=== PATIENT | male | born 1950 | race Caucasian/White ===

== ENCOUNTER 2017-07-21 10:20 | Observation (INO) | payer OTHER ==
[~2017-07-21] VITALS: Ht 182.9 cm; Wt 106.1 kg
[~2017-07-21 10:20] MED LIST: UNKNOWN BP MED
[2017-07-21 10:51] LABS: BASO % 0.6 %; BASO ABS # 0.03 K/uL (0-0.2); COMPLETE YES; HEMATOCRIT 47.9 % (42-52); IG% 0.2 %; LYMPH % 28.3 %; LYMPH ABS # 1.43 K/uL (1.2-3.4); MEAN CORPUSCULAR HEMOGLOBIN 32.8 pg (25-34); MEAN CORPUSCULAR HGB CONC 35.3 g/dl (32-36); MEAN PLATELET VOLUME 10.6 fL (7.4-10.4); MONO % 9.1 %; NEUT % 58.8 %; PLATELET COUNT 212 K/uL (130-400); RED BLOOD COUNT 5.15 M/uL (4.7-6.1); WHITE BLOOD COUNT 5.05 K/uL (4.8-10.8)
--- NOTE | 2017-07-21 10:59 | DIAGNOSTIC IMAGING REPORT ---
CHEST ONE VIEW PORTABLE HISTORY: Atypical CHEST PAIN COMPARISON: None. FINDINGS: The lungs are clear. Cardiac silhouette is normal in size. No pleural effusions. No pneumothorax. IMPRESSION: No acute process. Electronically signed by: Wilian Lam M.D. 07/21/2017 10:57 AM Dictated Date/Time: 07/21/2017 10:56 AM
[2017-07-21 11:01] LABS: PARTIAL THROMBOPLASTIN RATIO 1.1; PROTHROMBIN TIME (PATIENT) 10.6 SECONDS (9.0-12.0)
--- NOTE | 2017-07-21 11:01 | DIAGNOSTIC IMAGING REPORT ---
CT HEAD WITHOUT CONTRAST (CT) CLINICAL HISTORY: vertigo COMPARISON STUDY: No previous studies for comparison. TECHNIQUE: Axial CT of the brain is performed from the vertex to the skull base. IV contrast was not administered for this examination. A dose lowering technique was utilized adhering to the principles of ALARA. CT DOSE: 614.27 mGy.cm FINDINGS: No intra or extra-axial mass lesions are visualized. There is no CT evidence of acute cortical infarction. There is no evidence of midline shift. There is no acute hemorrhage. No calvarial fractures are visualized. There are minimal white matter hypodensities likely on a small vessel basis. There is no evidence of pathologic ventricular dilatation. There is mild maxilla sinus mucosal thickening. There is no evidence of acute sinusitis. IMPRESSION: No acute intracranial findings Electronically signed by: Vinayak Greenfield M.D. 07/21/2017 11:00 AM Dictated Date/Time: 07/21/2017 10:59 AM
[2017-07-21 11:10] LABS: ALT/SGPT 46 U/L (12-78); AST/SGOT 30 U/L (15-37); BLOOD UREA NITROGEN 9 mg/dl (7-18); BUN/CREATININE RATIO 7.3 (10-20); CALCIUM 9.3 mg/dl (8.5-10.1); CARBON DIOXIDE 24 mmol/L (21-32); CHLORIDE 107 mmol/L (98-107); CREATININE 1.18 mg/dl (0.60-1.40); GLUCOSE 94 mg/dl (70-99); SODIUM 141 mmol/L (136-145)
[2017-07-21 11:14] LABS: ALKALINE PHOSPHATASE 64 U/L (45-117)
[2017-07-21] MEDS ORDERED: AMLO-110 PO (11:28)
--- NOTE | 2017-07-21 12:02 | EMERGENCY ROOM VISIT NOTE ---
History Report prepared by Danilo: Corrine Daniel Under the Supervision of: Emily FieldsO. First contact with patient: 10:22 Chief Complaint: CARDIAC ASSESSMENT Stated Complaint: CHEST TIGHTNESS History of Present Illness The patient is a 67 year old male who presents to the Emergency Room for a cardiac assessment. The patient had a cold 1-2 weeks ago and thought that his symptoms had gone away. For the past week he has been having some tightness in his chest intermittently. This morning while he was in the shower he had another episode of chest tightness. He states that "it felt like a clenched fist in my chest." He became very dizzy and almost fell out of the shower. He states that it felt like the room was spinning. His chest pain felt like it was going straight through to his back. He describes it as "an achy pain." The patient denies shortness of breath, nausea, vomiting, abdominal pain, and leg pain or swelling. He denies any significant cardiac history. He has had a stress test in the past. The patient was brought to the ED by ambulance. He was given aspirin and nitro en route. This has helped his chest pain, but he states that he is still feeling dizzy. The patient rates his current pain as a 2/10 in severity. Source of History: patient Onset: 1 week ago Position: chest Symptom Intensity: 2/10 Quality: other (tightness) Timing: intermittent Modifying Factors (Relieving): other (aspirin and nitro) Associated Symptoms: + back pain, No SOB, No nausea, No vomiting, No abdominal pain Note: Pt reports dizziness. Review of Systems See HPI for pertinent positives & negatives. A total of 10 systems reviewed and were otherwise negative. Past Medical & Surgical Medical Problems: (1) Chest pain (2) HTN (hypertension) Family History Heart disease Social History Smoking Status: Never Smoker Alcohol Use: occasionally Marital Status: Housing Status: lives with significant other Current/Historical Medications Scheduled Amlodipine (Norvasc), 5 MG PO DAILY Allergies Coded Allergies: Shellfish Allergy (Unverified Allergy, Mild, HIVES, 07/21/17) Benazepril (Unverified Allergy, Unknown, ., 07/21/17) Physical Exam Vital Signs Date Time Temp Pulse Resp B/P (MAP) Pulse Ox O2 Delivery O2 Flow Rate FiO2 07/21/17 12:08 58 16 151/96 97 Room Air 07/21/17 10:52 71 07/21/17 10:27 37.0 69 18 181/116 96 Room Air 07/21/17 10:27 97 Room Air Physical Exam GENERAL: Patient is awake, alert, and in no acute distress. Patient is resting comfortably and showing no signs of anxiety EYES: The conjunctivae are clear. The pupils are round and reactive. EARS, NOSE, MOUTH AND THROAT: The nose is without any evidence of any deformity. Mucous membranes are moist tongue is midline NECK: The neck is nontender and supple. RESPIRATORY: Normal respiratory effort is noted there is no evidence of wheezing rhonchi or rales CARDIOVASCULAR: Regular rate and rhythm noted there no murmurs rubs or gallops normal S1 normal S2 GASTROINTESTINAL: The abdomen is soft. Bowel sounds are present in all quadrants. Abdomen is nontender MUSCULOSKELETAL/EXTREMITIES: There is no evidence of gross deformity full range of motion is noted in the hips and shoulders SKIN: There is no obvious evidence of any rash. There are no petechiae, pallor or cyanosis noted. NEUROLOGIC: Patient is awake alert and oriented x3 Medical Decision & Procedures ER Provider Diagnostic Interpretation: Radiology results as stated below per my review and radiologist interpretation: CT HEAD WITHOUT CONTRAST (CT) CLINICAL HISTORY: vertigo COMPARISON STUDY: No previous studies for comparison. TECHNIQUE: Axial CT of the brain is performed from the vertex to the skull base. IV contrast was not administered for this examination. A dose lowering technique was utilized adhering to the principles of ALARA. CT DOSE: 614.27 mGy.cm FINDINGS: No intra or extra-axial mass lesions are visualized. There is no CT evidence of acute cortical infarction. There is no evidence of midline shift. There is no acute hemorrhage. No calvarial fractures are visualized. There are minimal white matter hypodensities likely on a small vessel basis. There is no evidence of pathologic ventricular dilatation. There is mild maxilla sinus mucosal thickening. There is no evidence of acute sinusitis. IMPRESSION: No acute intracranial findings Electronically signed by: Vinayak Greenfield M.D. 07/21/2017 11:00 AM Dictated Date/Time: 07/21/2017 10:59 AM CHEST ONE VIEW PORTABLE HISTORY: Atypical CHEST PAIN COMPARISON: None. FINDINGS: The lungs are clear. Cardiac silhouette is normal in size. No pleural effusions. No pneumothorax. IMPRESSION: No acute process. Electronically signed by: Wilian Lam M.D. 07/21/2017 10:57 AM Dictated Date/Time: 07/21/2017 10:56 AM Laboratory Results 07/21/17 10:15 Red Blood Count 5.15, Mean Corpuscular Volume 93.0, Mean Corpuscular Hemoglobin 32.8, Mean Corpuscular Hemoglobin Concent 35.3, Mean Platelet Volume 10.6, Neutrophils (%) (Auto) 58.8, Lymphocytes (%) (Auto) 28.3, Monocytes (%) (Auto) 9.1, Eosinophils (%) (Auto) 3.0, Basophils (%) (Auto) 0.6, Neutrophils # (Auto) 2.97, Lymphocytes # (Auto) 1.43, Monocytes # (Auto) 0.46, Eosinophils # (Auto) 0.15, Basophils # (Auto) 0.03 07/21/17 10:15 Test 07/21/17 10:15 White Blood Count 5.05 K/uL (4.8-10.8) Red Blood Count 5.15 M/uL (4.7-6.1) Hemoglobin 16.9 g/dL (14.0-18.0) Hematocrit 47.9 % (42-52) Mean Corpuscular Volume 93.0 fL (80-100) Mean Corpuscular Hemoglobin 32.8 pg (25-34) Mean Corpuscular Hemoglobin Concent 35.3 g/dl (32-36) Platelet Count 212 K/uL (130-400) Mean Platelet Volume 10.6 fL (7.4-10.4) Neutrophils (%) (Auto) 58.8 % Lymphocytes (%) (Auto) 28.3 % Monocytes (%) (Auto) 9.1 % Eosinophils (%) (Auto) 3.0 % Basophils (%) (Auto) 0.6 % Neutrophils # (Auto) 2.97 K/uL (1.4-6.5) Lymphocytes # (Auto) 1.43 K/uL (1.2-3.4) Monocytes # (Auto) 0.46 K/uL (0.11-0.59) Eosinophils # (Auto) 0.15 K/uL (0-0.5) Basophils # (Auto) 0.03 K/uL (0-0.2) RDW Standard Deviation 41.4 fL (36.4-46.3) RDW Coefficient of Variation 12.3 % (11.5-14.5) Immature Granulocyte % (Auto) 0.2 % Immature Granulocyte # (Auto) 0.01 K/uL (0.00-0.02) Prothrombin Time 10.6 SECONDS (9.0-12.0) Prothromb Time International Ratio 1.0 (0.9-1.1) Activated Partial Thromboplast Time 27.9 SECONDS (21.0-31.0) Partial Thromboplastin Ratio 1.1 Anion Gap 10.0 mmol/L (3-11) Est Creatinine Clear Calc Drug Dose 76.1 ml/min Estimated GFR () 73.1 Estimated GFR (Non- 63.0 BUN/Creatinine Ratio 7.3 (10-20) Calcium Level 9.3 mg/dl (8.5-10.1) Total Bilirubin 0.5 mg/dl (0.2-1) Direct Bilirubin 0.2 mg/dl (0-0.2) Aspartate Amino Transf (AST/SGOT) 30 U/L (15-37) Alanine Aminotransferase (ALT/SGPT) 46 U/L (12-78) Alkaline Phosphatase 64 U/L (45-117) Total Protein 7.9 gm/dl (6.4-8.2) Albumin 3.6 gm/dl (3.4-5.0) Lipase 212 U/L (73-393) Laboratory results per my review. ECG Indication: chest pain Rate (beats per minute): 52 Rhythm: sinus bradycardia Findings: no acute ischemic change, no ectopy Comparison ECG Date: no prior available ED Course 1022: The patient was evaluated in room A4B. A complete history and physical examination were performed. 1201: I reassessed the patient at this time. He is feeling better and resting comfortably. I discussed the results and treatment plan with the patient. I answered all pertaining questions that he had. He expressed understanding and verbalized agreement. 1207: I spoke with Dr. Joyce. We discussed the patient's case. The patient will be evaluated by the [facility] for further management. Medical Decision Differential diagnosis: Etiologies such as cardiac ischemia, aortic dissection, pulmonary embolism, pneumonia, pneumothorax, musculoskeletal, infections, pericarditis, myocarditis , esophageal rupture, gastrointestinal, as well as others were entertained. Nursing notes reviewed. The patient is a 67-year-old male who presented to the emergency apartment for an evaluation of chest discomfort. The patient describes chest discomfort which began earlier today. He's had similar episodes in the past. He was given aspirin and nitroglycerin prior to arrival. He arrived at the emergency Department pain-free. I discussed the patient's laboratory and radiographic studies with him. I also discussed the limitations of the emergency department workup for chest pain. He was encouraged to rest and avoid any strenuous activity. Because of his symptoms as well as his past medical history I discussed his case with the on-call [facility] hospitalist. They've agreed to evaluate the patient in the emergency apartment for further management and disposition. Medication Reconcilliation Current Medication List: was personally reviewed by me Blood Pressure Screening Patient's blood pressure: Elevated blood pressure Blood pressure disposition: Elevated BP felt to be situational Consults Time Called: 1204 Consulting Physician: Dr. Joyce Returned Call: [address] Joyce. We discussed the patient's case. The patient will be evaluated by the [facility] for further management. Impression Primary Impression: Substernal chest pain Scribe Attestation The scribe's documentation has been prepared under my direction and personally reviewed by me in its entirety. I confirm that the note above accurately reflects all work, treatment, procedures, and medical decision making performed by me. Departure Information Dispostion Being Evaluated By Hospitalist Patient Instructions [facility]
[2017-07-21] MEDS ORDERED: NITROGLYCERIN 0.4 MG SL PER TAB CHARGE SL PRN (12:45)
[2017-07-21] MEDS ORDERED: ACETAMINOPHEN 325 MG TAB PO PRN (12:45)
[2017-07-21] MEDS ORDERED: ONDANSETRON INJ 2 MG/ML 2 ML VIAL IV PRN (12:45)
[2017-07-21] MEDS ORDERED: MAGNESIUM HYDROXIDE SUSP 30 ML UDC PO PRN (12:45)
[2017-07-21] MEDS ORDERED: OPTIRAY 320 IV PRN (12:45)
--- NOTE | 2017-07-21 12:52 | History and Physical ---
History & Physical Date & Time of Service: Jul 21, 2017 at 12:41 Chief Complaint: Chest Tightness Primary Care Physician: Sea Simons M.D. History of Present Illness Source: patient 67 y/o M c/o dizziness. Pt states he had what he thought was a cold about a week ago. During this cold and since that time, he has had substernal chest tightness. It comes and goes and occasionally he has chest pain substernally, but not often. No radiation into jaw or L UE. No SOB at rest or with exertion. Pt woke up this AM and had the same chest tightness. He noted that he felt a bit lightheaded going out to his mailbox and then got into the shower and started to have room spinning dizziness. He did not fall, but lost his balance. At that point, he called the ambulance. He was found to have a BP 200s/124. He was given nitro and aspirin. On arrival to [facility] ED, his BP was 180s/110s and his dizziness had resolved. His chest tightness was also improved but is still present. Pt states he had similar symptoms about 10 years ago when he was dx with HTN. He had been managed on benazepril until about 1 year ago when he developed an allergy to this medication and was having swelling. It was changed to another drug that he is uncertain of the name. This was changed about 1 month ago to amlodipine as his BP was starting to increase. Pt has his blood donor card with him. BPs were 100s-110s/70s-80s until around February and since that time he has been high 130s-150s. He is not aware of any other changes since that time. Pt states that other than the cold and the chest tightness, the last few weeks have been his usual. He has had no issues with stairs or completing his daily work. No issues with PO intake. Pt denies fever, abd pain, n/v/c/d, LE pain or swelling. Past Medical/Surgical History Medical Problems: (1) HTN (hypertension) Status: Chronic Family History Family history was reviewed; no changes noted. Father: [place] with open heart surgery x2 Mother: CVA Social History Smoking Status: Never Smoker Alcohol Use: 2 beers daily, no issues on days without alcohol, agrees Drug Use: none Marital Status: Multi-Drug Resistant Organisms History of MDRO: No Allergies Coded Allergies: Benazepril (Unverified Allergy, Unknown, ., 07/21/17) Home Medications Scheduled Amlodipine (Norvasc), 5 MG PO DAILY Review of Systems Pertinent positives and negatives reviewed in HPI--all others negative Physical Exam Vital Signs Date Time Temp Pulse Resp B/P (MAP) Pulse Ox O2 Delivery O2 Flow Rate FiO2 07/21/17 12:08 58 16 151/96 97 Room Air 07/21/17 10:52 71 07/21/17 10:27 37.0 69 18 181/116 96 Room Air 07/21/17 10:27 97 Room Air General Appearance: WD/WN, no apparent distress Head: normocephalic, atraumatic Eyes: normal inspection, PERRL, EOMI ENT: hearing grossly normal Neck: supple Respiratory/Chest: lungs clear, normal breath sounds, no respiratory distress Cardiovascular: regular rate, rhythm, no edema Abdomen/GI: non tender, soft Extremities/Musculoskelatal: no calf tenderness, no pedal edema Neurologic/Psych: log washer II-XII nml as tested, alert, oriented x 3, + pertinent finding (= fermentation manager strength 5/5 b/l) Skin: normal color, warm/dry Diagnostics Laboratory Results Results Past 24 Hours Test 07/21/17 10:15 Range/Units White Blood Count 5.05 4.8-10.8 K/uL Red Blood Count 5.15 4.7-6.1 M/uL Hemoglobin 16.9 14.0-18.0 g/dL Hematocrit 47.9 42-52 % Mean Corpuscular Volume 93.0 80-100 fL Mean Corpuscular Hemoglobin 32.8 25-34 pg Mean Corpuscular Hemoglobin Concent 35.3 32-36 g/dl Platelet Count 212 130-400 K/uL Mean Platelet Volume 10.6 7.4-10.4 fL Neutrophils (%) (Auto) 58.8 % Lymphocytes (%) (Auto) 28.3 % Monocytes (%) (Auto) 9.1 % Eosinophils (%) (Auto) 3.0 % Basophils (%) (Auto) 0.6 % Neutrophils # (Auto) 2.97 1.4-6.5 K/uL Lymphocytes # (Auto) 1.43 1.2-3.4 K/uL Monocytes # (Auto) 0.46 0.11-0.59 K/uL Eosinophils # (Auto) 0.15 0-0.5 K/uL Basophils # (Auto) 0.03 0-0.2 K/uL RDW Standard Deviation 41.4 36.4-46.3 fL RDW Coefficient of Variation 12.3 11.5-14.5 % Immature Granulocyte % (Auto) 0.2 % Immature Granulocyte # (Auto) 0.01 0.00-0.02 K/uL Prothrombin Time 10.6 9.0-12.0 SECONDS Prothromb Time International Ratio 1.0 0.9-1.1 Activated Partial Thromboplast Time 27.9 21.0-31.0 SECONDS Partial Thromboplastin Ratio 1.1 Sodium Level 141 136-145 mmol/L Potassium Level 4.0 3.5-5.1 mmol/L Chloride Level 107 98-107 mmol/L Carbon Dioxide Level 24 21-32 mmol/L Anion Gap 10.0 3-11 mmol/L Blood Urea Nitrogen 9 7-18 mg/dl Creatinine 1.18 0.60-1.40 mg/dl Est Creatinine Clear Calc Drug Dose 76.1 ml/min Estimated GFR () 73.1 Estimated GFR (Non- 63.0 BUN/Creatinine Ratio 7.3 10-20 Random Glucose 94 70-99 mg/dl Calcium Level 9.3 8.5-10.1 mg/dl Total Bilirubin 0.5 0.2-1 mg/dl Direct Bilirubin 0.2 0-0.2 mg/dl Aspartate Amino Transf (AST/SGOT) 30 15-37 U/L Alanine Aminotransferase (ALT/SGPT) 46 12-78 U/L Alkaline Phosphatase 64 45-117 U/L Troponin I < 0.015 0-0.045 ng/ml Total Protein 7.9 6.4-8.2 gm/dl Albumin 3.6 3.4-5.0 gm/dl Lipase 212 73-393 U/L Diagnostic Radiology CT head neg for acute CXR normal EKG Sinus kayla Impression Assessment and Plan 67 y/o M who was admitted for observation for HTN emergency with chest tightness and vertigo HTN emergency: pt with hx of same, sx improving with improved BP Likely the cause of sx CT head, CXR neg for acute Trop neg, serials pending EKG with sinus kayla CTA head/neck pending ECHO 2010 WNL, will hold on repeat for now PRP, CBC WNL Alcohol use: denies hx of shakiness, DTs, other seizure activity Advised to alert nursing if he has sx of withdrawal, however reported use is not problematic Other: Full code AHA diet Ambulation for DVT proph Level of Care Telemetry Resuscitation Status FULL RESUSCITATION VTE Prophylaxis VTE Risk Assessment Done? Y/N: Yes Risk Level: Low
--- NOTE | 2017-07-21 13:27 | DIAGNOSTIC IMAGING REPORT ---
CT HEAD ANGIO WITH CONTRAST CLINICAL HISTORY: Dizziness, hypertension. VERTIGO TECHNIQUE: CT angiography of the head was performed in a dynamic helical fashion during intravenous administration of 120 cc of Optiray 320. A dose lowering technique was utilized adhering to the principles of ALARA. MIP imaging was performed. CT DOSE: 726.68 mGy.cm COMPARISON STUDY: Noncontrast head CT dated 07/21/2017 FINDINGS: There are no lesion suspicious for aneurysm. There are no major intracranial branch occlusions. The dural venous sinuses appear patent. IMPRESSION: Normal study. Electronically signed by: Vinayak Greenfield M.D. 07/21/2017 1:26 PM Dictated Date/Time: 07/21/2017 1:24 PM
[2017-07-21 13:31] VITALS: BP_SYST 159; BP_SYST 190; BP_DIAS 103; BP_DIAS 109; PULSE 69; TEMP 36.7; O2SAT 97
--- NOTE | 2017-07-21 13:41 | DIAGNOSTIC IMAGING REPORT ---
CT NECK ANGIO WITH CONTRAST CLINICAL HISTORY: Dizziness, hypertension. COMPARISON STUDY: No previous studies for comparison. TECHNIQUE: CT angiography was performed from the aortic arch to the skull base. MIP imaging was performed. The patient was scanned in a dynamic helical fashion during intravenous administration of 120 cc of Optiray 320. A dose lowering technique was utilized adhering to the principles of ALARA. CT DOSE: Technique: CT angiogram of the carotid and vertebral arteries was obtained using intravenous contrast and 3-D reconstruction. NASCET criteria was utilized. Findings: The ascending thoracic aorta measures 37 mm in diameter. There are atheromatous changes at the level of the right carotid bulb and proximal right internal carotid artery. These result in a 35% diameter stenosis. There is no dissection. There is no evidence of aneurysm. Atheromatous changes are present the level the left carotid bulb. There is a 60% diameter stenosis involving the left internal carotid artery origin. There is no dissection. No aneurysm is visualized. There is no evidence of hemodynamic significant right vertebral artery stenosis. There is calcific plaque at the arch in the left vertebral artery, making accurate quantitation of the stenosis difficult. A greater than 80% stenosis is suspected IMPRESSION: 1. 60% diameter stenosis of the left internal carotid artery origin 2. 35% stenosis of the proximal right internal carotid artery 3. 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 07/21/2017 1:40 PM Dictated Date/Time: 07/21/2017 1:30 PM
[2017-07-21] MEDS ORDERED: NURSING VERBAL MED ORDER ONE ×2 (13:45)
[2017-07-21] MEDS ORDERED: METOPROLOL TARTRATE 1 MG/ML VIAL ONE (13:47)
[2017-07-21] MEDS ORDERED: METOPROLOL TARTRATE 1 MG/ML VIAL IV PRN (14:00)
[2017-07-21 14:10] VITALS: BP_SYST 159; BP_SYST 190; BP_DIAS 103; BP_DIAS 109; PULSE 69; TEMP 36.7; O2SAT 97; Ht 182.9 cm; Wt 106.1 kg
[2017-07-21 14:18] VITALS: BP 156/105
[2017-07-21] MEDS ORDERED: IV FLUIDS COMPLETED PRN (15:15)
[2017-07-21 15:25] VITALS: BP 129/79; PULSE 56; TEMP 36.5; O2SAT 97
[2017-07-21 23:55] VITALS: BP_SYST 161; BP_SYST 180; BP_DIAS 100; BP_DIAS 136; PULSE 68; TEMP 37; O2SAT 97
[2017-07-22 04:10] VITALS: BP 153/91; PULSE 63; TEMP 36.2; O2SAT 96
[2017-07-22 08:11] VITALS: BP 175/102; PULSE 53; TEMP 36.6; O2SAT 96
[2017-07-22] MEDS ORDERED: AMLODIPINE BESYLATE 5 MG TAB PO SCH ×2 (09:00)
[2017-07-22 10:14] VITALS: BP 155/94
[2017-07-22] MEDS ORDERED: NRV5 PO (11:39)
--- NOTE | 2017-07-22 11:48 | Discharge Instructions ---
Discharge Instructions Date of Service Jul 22, 2017. Admission Reason for Admission: Chest Pain Discharge Discharge Diagnosis / Problem: Hypertensive Urgency Discharge Goals Goal(s): Decrease discomfort, Therapeutic intervention Activity Recommendations Activity Limitations: as noted below Lifting Limitations: gradually increase as tolerated Exercise/Sports Limitations: gradually increase as tolerated Driving or Machine Use: no limitations . Instructions / Follow-Up Instructions / Follow-Up You were seen in the hospital for hypertensive urgency (high blood pressure) causing dizziness. When you were seen in the hospital all the heart workup labs were negative. Head imaging did reveal a narrowing of your Vertebral Artery to 80% stenosis (blockage). For this you will need to follow up with Dr. Mcmahan of Vascular Surgery as an outpatient. We also doubled the dose of your Amlodipine to 10mg daily. Please try to follow a low sodium diet on discharge to improve your blood pressure. Follow up appointments: - Schedule a follow up with Dr. Simons in the next 2-3 days for a hospital follow up - We will schedule a follow up with Dr. Mcmahan of Vascular surgery --> If you do not hear from scheduling in the next week, please call our office Medications: - Amlodipine 10mg Daily --> Take 2 of your 5mg tablets every day until you see Dr. Simons as an outpatient If you have any worsening of symptoms including chest pain, lightheadedness, shortness of breath, blurriness of vision, or any other concerning symptoms please return to the emergency department or be evaluated by a physician immediately Current Hospital Diet Patient's current hospital diet: AHA Diet (Heart Healthy) Discharge Diet Recommended Diet: Low Sodium Diet (2gm Na) Pending Studies Studies pending at discharge: no Medical Emergencies . Who to Call and When: Medical Emergencies: If at any time you feel your situation is an emergency, please call 911 immediately. . Non-Emergent Contact Non-Emergency issues call your: Primary Care Provider . . "Provider Documentation" section prepared by Umang Ovalle. . VTE Core Measure Inpt VTE Proph given/why not?: Treatment not indicated
[2017-07-22 11:54] VITALS: BP 178/103; PULSE 59; TEMP 36.8; O2SAT 97
[2017-07-22 11:59] VITALS: BP 148/89
[2017-07-22 12:01] VITALS: BP 148/89; PULSE 59; TEMP 36.8; O2SAT 97
--- NOTE | 2017-07-22 13:41 | Discharge Summary ---
Discharge Summary Date of Service Jul 22, 2017. Discharge Summary Admission Date: Jul 21, 2017 at 12:40 Discharge Date: Jul 22, 2017 Discharge Disposition: Home Principal Diagnosis: Hypertensive urgency Medication Reconciliation New Medications: Amlodipine Besylate (Amlodipine Besylate) 5 Mg Tab 10 MG PO DAILY for 14 Days, #28 TAB Discontinued Medications: Amlodipine (Norvasc) 5 Mg Tab 5 MG PO DAILY, TAB Discharge Exam Review of Systems: Constitutional: No fever, No chills, No fatigue Eyes: No worsening of vision, No diplopia Respiratory: No cough, No shortness of breath, No dyspnea on exertion, No dyspnea at rest Cardiovascular: No chest pain, No palpitations Abdomen: No pain, No vomiting Psychiatric: No depression symptoms, No anxiety Endocrine: No fatigue Physical Exam: General Appearance: WD/WN, no apparent distress Eyes: normal inspection, sclerae normal Neck: supple, no carotid bruits Respiratory/Chest: chest non-tender, lungs clear, normal breath sounds, no respiratory distress, no accessory muscle use Cardiovascular: regular rate, rhythm, no edema, no gallop Abdomen / GI: normal bowel sounds, non tender, soft Extremities: normal inspection, no calf tenderness, no pedal edema Neurologic/Psychiatric: alert, normal mood/affect, oriented x 3 Hospital Course Patient was admitted to the hospital yesterday for an episode of dizziness he experienced in the shower and shortly thereafter developed chest tightness prompting him to call EMS. The patient was evaluated in the emergency department and found to initially have a blood pressure of 181/116 although after being given nitro and aspirin by the EMS his dizziness had resolved with mild chest tightness still lingering. In the ED EKG was found to be sinus kayla with no ST changes, serial trops were negative, CT Head normal, CXR normal. A CTA head and neck was also performed and one significant finding was an 80% stenosis of the left vertebral artery. The patient symptoms overnight resolved and the morning of discharged received 10mg of Amlodipine (home dose normally 5mg). The patient had no residual symptoms and it was believed he has recently had poor control of his blood pressure causing his presenting symptoms. In addition to the increased dose of Amlodipine the patient was instructed to maintain a low sodium diet (< 2gm). The patient will follow up with Dr. Mcmahan next week regarding the finding on CTA. He will also follow up with Dr. Simons to monitor his blood pressure and work on his outpatient regimen. Total Time Spent: Greater than 30 minutes This includes examination of the patient, discharge planning, medication reconciliation, and communication with other providers. Discharge Instructions Please refer to the electronic Patient Visit Report (Discharge Instructions) for additional information. Additional Copies To Sea Simons M.D.; Wesley Mcmahan M.D. Resident Tracking Resident Involvement: Resident Care Provided Care Provided: Adult [facility] Medicine
== END 2017-07-22 12:36 | disposition home or self-care (01) ==
LOC: EDBD 10:20 → C.EDA 10:22 → C.2E 12:40 → ENRESERV 12:53
PROVIDERS: ADMIT Family Medicine; ATTEND Student in an Organized Health Care Education/Training Program
DX: I16.0 Hypertensive urgency (principal); Z79.899 Other long term (current) drug therapy

== ENCOUNTER 2019-10-17 11:28 | Observation (INO) ==
[2019-10-17 11:47] LABS: Basophils # (auto) 0.04 K/uL (0-0.2); Basophils % (auto) 0.7 %; Eosinophils # (auto) 0.13 K/uL (0-0.5); Eosinophils % (auto) 2.2 %; Hemoglobin 16.2 g/dL (14.0-18.0); Immature Granulocytes # (auto) 0.01 K/uL (0.00-0.02); Immature Granulocytes % (auto) 0.2 %; Lymphocytes # (auto) 1.38 K/uL (1.2-3.4); Lymphocytes % (auto) 23.6 %; Mean Corpuscular Hemoglobin 31.1 pg (25-34); Mean Corpuscular Hgb Conc 34.5 g/dL (32-36); Mean Corpuscular Volume 90.2 fL (80-100); Mean Platelet Volume 10.3 fL (7.4-10.4); Monocytes # (auto) 0.52 K/uL (0.11-0.59); Monocytes % (auto) 8.9 %; Neutrophils # (auto) 3.76 K/uL (1.4-6.5); Neutrophils % (auto) 64.4 %; Platelet Count 205 K/uL (130-400); RDW Coefficient of Variation 13.6 % (11.5-14.5); RDW Standard Deviation 44.7 fL (36.4-46.3); Red Blood Count 5.21 M/uL (4.7-6.1); White Blood Count 5.84 K/uL (4.8-10.8)
[2019-10-17 12:00] LABS: Partial Thromboplastin Time 27.8 Seconds (21.0-31.0); Prothrombin Time 10.3 Seconds (9.0-12.0)
[2019-10-17 12:02] LABS: Alanine Aminotransferase 41 U/L (12-78); Albumin Level 3.9 gm/dl (3.4-5.0); Aspartate Aminotransferase 27 U/L (15-37); BUN Creatinine Ratio 7.1 (10-20); Blood Urea Nitrogen 9 mg/dl (7-18); Calcium 9.8 mg/dl (8.5-10.1); Carbon Dioxide 28 mmol/L (21-32); Chloride 105 mmol/L (98-107); Creatinine Clr Calc Pharmacy 71.6 ml/min; Est GFR (African American) 69.9; Est GFR (Non-African American) 60.3; Glucose 95 mg/dl (70-99); Lipase 172 U/L (73-393); Potassium 4.1 mmol/L (3.5-5.1); Sodium 138 mmol/L (136-145)
[2019-10-17 12:06] LABS: Albumin Globulin Ratio 0.9 (0.9-2); Alkaline Phosphatase 64 U/L (45-117); Bilirubin,Total 0.8 mg/dl (0.2-1); Globulin 4.6 gm/dl (2.5-4.0); Total Protein 8.5 gm/dl (6.4-8.2); Troponin I < 0.015 ng/ml (0-0.045)
--- NOTE | 2019-10-17 12:39 | XRay Report ---
XR chest 1V portable CLINICAL HISTORY: Chest Pain dyspnea COMPARISON STUDY: 07/21/2017 FINDINGS: The bones soft tissues and hemidiaphragms are normal. The cardiomediastinal silhouette is n ormal. The lungs are clear. The pulmonary vasculature is normal. IMPRESSION: Negative chest. ACT 112: Negative or not required by law. The above report was generated using voice recognition software. It may contain grammatical, syntax or spelling errors. Electronically signed by: Kyrie Patel M.D. 10/17/2019 12:37 PM
[2019-10-17] MEDS ORDERED: METOPROLOL TARTRATE 1 MG/ML VIAL IV STA (13:02)
--- NOTE | 2019-10-17 14:33 | History & Physical Report ---
Date of Service October 17, 2019 Assessment & Plan (1) Substernal chest pain: 69yo C male with HTN/HLP/FHx of premature CAD presenting with intermittent substernal chest pain, relieved with Nitro. Troponin x 1 negative, EKG with no acute ischemic changes. Patient presently with only mild chest discomfort, <1/10. HEART Score = 4, moderate risk of MACE -Observation to medical floor with telemetry -Trend troponin q 8 hours x 3 sets -Check lipid panel and A1C for risk stratification -Continue ASA 81mg po daily and Pravastatin 10mg po daily (may need to increase this dose) -Nitro and Morphine PRN chest pain -Hold Metoprolol for now for possible stress testing in AM -NPO after midnight -Exercise stress test ordered for the AM - to be discontinued if patient with elevated enzymes Present on Admission?: Yes (2) HTN (hypertension): Blood pressure mildly elevated, 148/90 -Continue Amlodipine -Holding AM Metoprolol for stress test in AM - patient may receive it later Present on Admission?: Yes (3) Hyperlipidemia: Chronic. Stable -Lipid panel -Continue Pravastatin 10mg po daily Present on Admission?: Yes (4) GERD (gastroesophageal reflux disease): Chronic. Stable -Continue to monitor. Patient not on any medications Present on Admission?: Yes (5) Vertebral artery stenosis: Being followed by Vascular. No intervention at this time -Continue ASA and Pravastatin F/E/N - Heplock. Monitor electrolytes and replete as needed, Heart healthy diet as tolerated, NPO after midnight Ppx - low risk for DVT Code - Full per discussion with patient Dispo - Observation to medical floor with telemetry Present on Admission?: Yes History of Present Illness Chief Complaint: chest pain Primary Care Provider: Sae Simons MD Lavon Martin is a pleasant 69yo C male with history of HTN, HLP, family history of premature CAD (Father with [facility] at age 40, Brother with [facility] at age 38) presenting with chest pain. Patient reports the pain has been occurring intermittently for months to years but worsening over the last week. This AM he woke up around 07:00 and felt lightheaded, slightly nauseated and sweaty palms which worsened through the morning. Around 09:30 he developed substernal chest discomfort that he described as feeling like a "pulling or muscle strain". Discomfort non-radiating, non-pleuritic, non-exertional and non-positional. He was administered Nitro and ASA 324mg en route to [facility] ER which markedly improved his chest pain. At this time he has only mild discomfort, rated <1/10. He is active and independent. Denies exertional CP or dyspnea. Patient with no prior history of CAD, CHF or arrhythmia. He had a stress test performed years ago which he reported as normal. No prior catheterizations or cardiac interventions. He does have an 80% stenosis of left vertebral artery which is asymptomatic and being monitored by Dr. Mcmahan. ER Course: Metoprolol 5mg IV, Nitro 0.4mg and ASA 324mg Allergies Allergy/AdvReac Type Severity Reaction Status Date / Time benazepril Allergy Unknown SWELLING Verified 10/17/19 12:42 NOSE THROAT Iodinated Contrast Media Allergy Hives Unverified 10/17/19 12:42 atorvastatin AdvReac Unknown Diarrhea Verified 10/17/19 12:42 Home Medications Home Medications Medication Instructions Recorded Confirmed Type amlodipine 10 mg PO QAM 10/22/18 10/17/19 History aspirin 81 mg PO QAM 10/22/18 10/17/19 History metoprolol succinate 25 mg PO QAM 10/22/18 10/17/19 History pravastatin 10 mg PO DAILY 10/17/19 10/17/19 History Past Med/Surg History Medical History (Updated 10/17/19 @ 14:30 by Ayah Maurice DO) GERD (gastroesophageal reflux disease) HTN (hypertension) (Chronic) Hyperlipidemia Vertebral artery stenosis Surgical History History of esophagogastroduodenoscopy (EGD) REMOVAL FOREIGN BODY History of tooth extraction Nausea and vomiting after administration of anesthetic agent Status post scrotal varicocelectomy Family History (Updated 10/17/19 @ 14:20 by Ayah Maurice DO) Father Coronary heart disease, Onset Age: 40 Brother Coronary heart disease, Onset Age: 38 Social History Preferred Language: Welsh Communication Ability: Effective Livestock [employer] Required: No Beliefs That Will Affect Care: None Current Living Situation: Spouse Feels Safe at Home: Yes Smoking Status: Never smoker Second Hand Exposure: Yes (GROWING UP) ; Hx Alcohol Use: Yes Alcohol type: beer Hx Substance Use: No Review of Systems Review of Systems: All systems reviewed & are unremarkable except as noted in HPI & below Physical Exam Physical Exam: General: patient resting comfortably, NAD, non-toxic in appearance, AA&O x 4 Skin: warm, dry, intact, no rashes or lesions HEENT: NC/AT, PERRL, EOMI, anicteric sclera, conjunctiva without injection, external ear normal to inspection and nontender, nares patent, moist mucus membranes, dentition intact, small lesion on uvula, neck supple, trachea midline, no LAD, no thyromegaly, no JVD Heart: +S1/S2, regular, bradycardic, no m/r/g Lungs: equal air entry bilaterally, no rales/rhonchi/wheezes Abd: +BS, soft, NT/ND, no masses/organomegaly/ascites Ext: warm, 2+ pulses in UE/LE bilaterally, no clubbing/cyanosis or edema Neuro: nonfocal, patient AA&O x 4, speech intact, no facial droop, moving all extremities on command with equal strength 5/5 Results & Data Vital Signs (Past 12 Hours) Vital Signs Temp Pulse Pulse Resp BP BP Pulse Ox 10/17/19 13:34 57 L 18 148/90 H 95 10/17/19 13:00 57 L 18 155/94 H 97 10/17/19 12:00 60 18 157/99 H 98 10/17/19 11:38 36.8 C 63 18 173/112 H 98 Laboratory Results Lab Results 10/17/19 10/17/19 10/17/19 Range/Units 11:05 11:05 11:05 WBC 5.84 (4.8-10.8) K/uL RBC 5.21 (4.7-6.1) M/uL Hgb 16.2 (14.0-18.0) g/dL Hct 47.0 (42-52) % MCV 90.2 (80-100) fL MCH 31.1 (25-34) pg MCHC 34.5 (32-36) g/dL RDW Std Deviation 44.7 (36.4-46.3) fL RDW Coeff of [place] 13.6 (11.5-14.5) % Plt Count 205 (130-400) K/uL MPV 10.3 (7.4-10.4) fL Immature Gran % (Auto) 0.2 % Neut % (Auto) 64.4 % Lymph % (Auto) 23.6 % [place] % (Auto) 8.9 % Eos % (Auto) 2.2 % Baso % (Auto) 0.7 % Immature Gran # (Auto) 0.01 (0.00-0.02) K/uL Neut # (Auto) 3.76 (1.4-6.5) K/uL Lymph # (Auto) 1.38 (1.2-3.4) K/uL [place] # (Auto) 0.52 (0.11-0.59) K/uL Eos # (Auto) 0.13 (0-0.5) K/uL Baso # (Auto) 0.04 (0-0.2) K/uL PT 10.3 (9.0-12.0) Seconds INR 1.0 (0.9-1.1) APTT 27.8 (21.0-31.0) Seconds PTT Ratio 1.0 Sodium 138 (136-145) mmol/L Potassium 4.1 (3.5-5.1) mmol/L Chloride 105 (98-107) mmol/L Carbon Dioxide 28 (21-32) mmol/L Anion Gap 5.0 (3-11) BUN 9 (7-18) mg/dl Creatinine 1.21 (0.6-1.4) mg/dl Est Cr Clr Drug Dosing 71.6 ml/min Est GFR ( Amer) 69.9 Est GFR (Non-Af Amer) 60.3 BUN/Creatinine Ratio 7.1 L (10-20) Glucose 95 (70-99) mg/dl Calcium 9.8 (8.5-10.1) mg/dl Total Bilirubin 0.8 (0.2-1) mg/dl AST 27 (15-37) U/L ALT 41 (12-78) U/L Alkaline Phosphatase 64 (45-117) U/L Troponin I < 0.015 (0-0.045) ng/ml Total Protein 8.5 H (6.4-8.2) gm/dl Albumin 3.9 (3.4-5.0) gm/dl Globulin 4.6 H (2.5-4.0) gm/dl Albumin/Globulin Ratio 0.9 (0.9-2) Lipase 172 (73-393) U/L Diagnostic Findings XR chest 1V portable CLINICAL HISTORY: Chest Pain dyspnea COMPARISON STUDY: 07/21/2017 FINDINGS: The bones soft tissues and hemidiaphragms are normal. The cardiomediastinal silhouette is normal. The lungs are clear. The pulmonary vasculature is normal. IMPRESSION: Negative chest. ACT 112: Negative or not required by law. The above report was generated using voice recognition software. It may contain grammatical, syntax or spelling errors. Electronically signed by: Kyrie Patel M.D. 10/17/2019 12:37 PM Dictated: 10/17/19 1237 Transcribed: 10/17/19 1237 ECG Additional Comments: The study shows NSR at 68bpm, normal axix, IC=280, QRS=90, TZh=161, no acute ischemic changes, no change from prior study Code Status & VTE Plan Code Status Full VTE Prophylaxis Plan VTE Prophylaxis will be ordered: Yes PG Care Time/CCT Total # of Minutes Spent Total Time Spent with Patient: Total time spent is greater than 50% in coordination of care (as documented) at patient's floor/unit and/or counseling patient: Coding Level of Care Code 34387 OBS Care - Level 3 Diagnoses Substernal chest pain R07.2 HTN (hypertension) I10 Hypertension type: essential hypertension Hyperlipidemia E78.5 Hyperlipidemia type: unspecified GERD (gastroesophageal reflux disease) K21.9 Esophagitis presence: esophagitis presence not specified Vertebral artery stenosis I65.02 Laterality: left (1) HTN (hypertension) Hypertension type: essential hypertension Qualified Code(s): I10 - Essential (primary) hypertension (2) Hyperlipidemia Hyperlipidemia type: unspecified Qualified Code(s): E78.5 - Hyperlipidemia, unspecified (3) GERD (gastroesophageal reflux disease) Esophagitis presence: esophagitis presence not specified Qualified Code(s): K21.9 - Gastro-esophageal reflux disease without esophagitis (4) Vertebral artery stenosis Laterality: left Qualified Code(s): I65.02 - Occlusion and stenosis of left vertebral artery
[2019-10-17] MEDS ORDERED: NITROGLYCERIN SL 0.4 MG/TAB TAB SL PRN (14:47)
[2019-10-17] MEDS ORDERED: ACETAMINOPHEN 325 MG TAB PO PRN (14:47)
[2019-10-17] MEDS ORDERED: ONDANSETRON INJ 2 MG/ML 2 ML VIAL IV PRN (14:47)
[2019-10-17] MEDS ORDERED: MoRPHine SULFATE 2 MG/ML CARP IV PRN (14:47)
[2019-10-17] MEDS ORDERED: Nursing to Pharmacy Communication ONE (16:37)
--- NOTE | 2019-10-17 18:54 | Emergency Department Note ---
Entered by Jame Julien acting as a scribe for History of Present Illness General Chief complaint: Chest Pain Time Seen by Provider: 10/17/19 11:34 Source: patient and other (nurse) History of Present Illness Onset (ago): day(s) (this morning) Location: chest Radiation: non-radiation Severity: similar to prior episodes Pain Consistency: + constant Associated symptoms: + other (Positive for lightheadedness, nausea. Negative for leg swelling.) The patient is a 69 year old male who presents to the emergency department with complaints of constant CP beginning this morning. The patient states that woke up at 0700 this morning and was lightheaded at that time. He notes that he then developed chest pain that does not radiate anywhere. He reports that his lightheadedness then became worse, and he states that he became nauseous, prompting his visit to the emergency department. He notes that his pain felt similar to his prior episodes. Per nurse, the patient received aspirin and nitro en route to the emergency department with some relief of his symptoms. The patient denies any leg swelling. He reports that he has a history of hypertension. The patient state that his father had a heart attack at a young age. Home Medications Home Medications Medication Instructions Recorded Confirmed Type amlodipine 10 mg PO QAM 10/22/18 10/17/19 History aspirin 81 mg PO QAM 10/22/18 10/17/19 History metoprolol succinate 25 mg PO QAM 10/22/18 10/17/19 History pravastatin 10 mg PO DAILY 10/17/19 10/17/19 History Allergies Allergy/AdvReac Type Severity Reaction Status Date / Time benazepril Allergy Unknown SWELLING Verified 10/17/19 12:42 NOSE THROAT Iodinated Contrast Media Allergy Hives Unverified 10/17/19 12:42 atorvastatin AdvReac Unknown Diarrhea Verified 10/17/19 12:42 Past Med/Surg History Medical History (Updated 10/17/19 @ 14:30 by Ayah Maurice DO) GERD (gastroesophageal reflux disease) HTN (hypertension) (Chronic) Hyperlipidemia Vertebral artery stenosis Surgical History History of esophagogastroduodenoscopy (EGD) REMOVAL FOREIGN BODY History of tooth extraction Nausea and vomiting after administration of anesthetic agent Status post scrotal varicocelectomy Family History (Updated 10/17/19 @ 14:20 by Ayah Maurice DO) Father Coronary heart disease, Onset Age: 40 Brother Coronary heart disease, Onset Age: 38 Social History Preferred Language: Frisian Communication Ability: Effective Preschool Teacher Aide Required: No Beliefs That Will Affect Care: None Current Living Situation: Spouse Current Living Situation Comment: House Feels Safe at Home: Yes Smoking Status: Never smoker Second Hand Exposure: Yes (GROWING UP) ; Hx Alcohol Use: Yes Alcohol type: beer Hx Substance Use: No Review of Systems See HPI for pertinent positives & negatives. and A total of 10 systems reviewed and were otherwise negative Physical Exam Vital Signs Vital Signs - 24 hr 10/17/19 11:38 10/17/19 12:00 10/17/19 13:00 Temperature 36.8 C Temperature Source Oral Pulse Rate 63 Pulse Rate [Apical] 60 57 L Pulse Rhythm Regular Pulse Rhythm [Apical] Regular Regular Pulse Strength Normal Pulse Strength [Apical] Normal Normal Respiratory Rate 18 18 18 Respiratory Effort / Characteristics Non-Labored Spontaneous Non-Labored Spontaneous Non-Labored Spontaneous Respiratory Depth Normal Normal Normal Respiratory Pattern Regular Regular Regular Blood Pressure 173/112 H Blood Pressure [Right Arm] 157/99 H 155/94 H Blood Pressure Mean 132 Blood Pressure Mean [Right Arm] 118 114 Pulse Oximetry 98 98 97 Oxygen Delivery Method Room Air Room Air Room Air Sepsis Recent Fever Within 48 Hours No Sepsis New/Unexplained Change in Mental Status No Sepsis Action Taken by Nursing No Action Required 10/17/19 13:34 Temperature Temperature Source Pulse Rate Pulse Rate [Apical] 57 L Pulse Rhythm Pulse Rhythm [Apical] Regular Pulse Strength Pulse Strength [Apical] Respiratory Rate 18 Respiratory Effort / Characteristics Non-Labored Spontaneous Respiratory Depth Normal Respiratory Pattern Regular Blood Pressure Blood Pressure [Right Arm] 148/90 H Blood Pressure Mean Blood Pressure Mean [Right Arm] 109 Pulse Oximetry 95 Oxygen Delivery Method Room Air Sepsis Recent Fever Within 48 Hours Sepsis New/Unexplained Change in Mental Status Sepsis Action Taken by Nursing GENERAL: Patient is awake, alert, and in no acute distress.Patient is resting comfortably and showing no signs of anxiety EYES: The conjunctivae are clear. The pupils are round and reactive. EARS, NOSE, MOUTH AND THROAT: The nose is without any evidence of any deformity. Mucous membranes are moist.Tongue is midline NECK: The neck is nontender and supple. RESPIRATORY: Normal respiratory effort is noted. There is no evidence of wheezing rhonchi or rales to auscultation. CARDIOVASCULAR: Regular rate and rhythm noted. There no murmurs rubs or gallops normal S1 normal S2 GASTROINTESTINAL: The abdomen is soft. Bowel sounds are present in all quadrants. Abdomen is nontender. MUSCULOSKELETAL/EXTREMITIES: There is no evidence of gross deformity. Full range of motion is noted in the hips and shoulders. Trace pedal edema bilaterally. SKIN: There is no obvious evidence of any rash. There are no petechiae, pallor or cyanosis noted. NEUROLOGIC: Patient is awake alert and oriented x3. Course Course 1138: The patient was evaluated in room A9. A complete history and physical exam was performed. 1249: I reevaluated and updated the patient. The patient's heart score is 4. 1307: Upon reevaluation, the patient is stable. I discussed the findings and the treatment plan with the patient. He expresses agreement and understanding. I spoke with Dr. Maurice of the [facility] Hospitalist Service. The patient will be evaluated for further management. Consultations Consultation #1: I reviewed the patient's case with Dr. Maurice - Hospitalist, [facility]. She will evaluate the patient for further management. Time: 13:07 Administered Medications Discontinued Medications Metoprolol Tartrate (Lopressor) 5 mg IV NOW STA Stop: 10/17/19 13:03 Last Admin: 10/17/19 13:12 Dose: Not Given Documented by: [id number] Medical Decision Making Differential Diagnosis Differential diagnoses includes but is not limited to acute coronary syndrome, myocardial infarction, pericarditis, pulmonary embolus, aortic dissection, pneumonia, pneumothorax, musculoskeletal, shingles, esophageal. Medical Records Attestation: I reviewed the patient's medical records. Home Medications Current Medication List: was personally reviewed by me Laboratory Data Attestation: I reviewed the patient's lab results. Result diagrams: 10/17/19 11:05 10/17/19 11:05 Lab Results 10/17/19 10/17/19 10/17/19 Range/Units 11:05 11:05 11:05 WBC 5.84 (4.8-10.8) K/uL RBC 5.21 (4.7-6.1) M/uL Hgb 16.2 (14.0-18.0) g/dL Hct 47.0 (42-52) % MCV 90.2 (80-100) fL MCH 31.1 (25-34) pg MCHC 34.5 (32-36) g/dL RDW Std Deviation 44.7 (36.4-46.3) fL RDW Coeff of Oliva 13.6 (11.5-14.5) % Plt Count 205 (130-400) K/uL MPV 10.3 (7.4-10.4) fL Immature Gran % (Auto) 0.2 % Neut % (Auto) 64.4 % Lymph % (Auto) 23.6 % Armstrong % (Auto) 8.9 % Eos % (Auto) 2.2 % Baso % (Auto) 0.7 % Immature Gran # (Auto) 0.01 (0.00-0.02) K/uL Neut # (Auto) 3.76 (1.4-6.5) K/uL Lymph # (Auto) 1.38 (1.2-3.4) K/uL Armstrong # (Auto) 0.52 (0.11-0.59) K/uL Eos # (Auto) 0.13 (0-0.5) K/uL Baso # (Auto) 0.04 (0-0.2) K/uL PT 10.3 (9.0-12.0) Seconds INR 1.0 (0.9-1.1) APTT 27.8 (21.0-31.0) Seconds PTT Ratio 1.0 Sodium 138 (136-145) mmol/L Potassium 4.1 (3.5-5.1) mmol/L Chloride 105 (98-107) mmol/L Carbon Dioxide 28 (21-32) mmol/L Anion Gap 5.0 (3-11) BUN 9 (7-18) mg/dl Creatinine 1.21 (0.6-1.4) mg/dl Est Cr Clr Drug Dosing 71.6 ml/min Est GFR ( Amer) 69.9 Est GFR (Non-Af Amer) 60.3 BUN/Creatinine Ratio 7.1 L (10-20) Glucose 95 (70-99) mg/dl Calcium 9.8 (8.5-10.1) mg/dl Magnesium (1.8-2.4) mg/dl Total Bilirubin 0.8 (0.2-1) mg/dl AST 27 (15-37) U/L ALT 41 (12-78) U/L Alkaline Phosphatase 64 (45-117) U/L Troponin I < 0.015 (0-0.045) ng/ml Total Protein 8.5 H (6.4-8.2) gm/dl Albumin 3.9 (3.4-5.0) gm/dl Globulin 4.6 H (2.5-4.0) gm/dl Albumin/Globulin Ratio 0.9 (0.9-2) Lipase 172 (73-393) U/L 10/17/19 Range/Units 11:05 WBC (4.8-10.8) K/uL RBC (4.7-6.1) M/uL Hgb (14.0-18.0) g/dL Hct (42-52) % MCV (80-100) fL MCH (25-34) pg MCHC (32-36) g/dL RDW Std Deviation (36.4-46.3) fL RDW Coeff of Oliva (11.5-14.5) % Plt Count (130-400) K/uL MPV (7.4-10.4) fL Immature Gran % (Auto) % Neut % (Auto) % Lymph % (Auto) % Armstrong % (Auto) % Eos % (Auto) % Baso % (Auto) % Immature Gran # (Auto) (0.00-0.02) K/uL Neut # (Auto) (1.4-6.5) K/uL Lymph # (Auto) (1.2-3.4) K/uL Armstrong # (Auto) (0.11-0.59) K/uL Eos # (Auto) (0-0.5) K/uL Baso # (Auto) (0-0.2) K/uL PT (9.0-12.0) Seconds INR (0.9-1.1) APTT (21.0-31.0) Seconds PTT Ratio Sodium (136-145) mmol/L Potassium (3.5-5.1) mmol/L Chloride (98-107) mmol/L Carbon Dioxide (21-32) mmol/L Anion Gap (3-11) BUN (7-18) mg/dl Creatinine (0.6-1.4) mg/dl Est Cr Clr Drug Dosing ml/min Est GFR ( Amer) Est GFR (Non-Af Amer) BUN/Creatinine Ratio (10-20) Glucose (70-99) mg/dl Calcium (8.5-10.1) mg/dl Magnesium 2.2 (1.8-2.4) mg/dl Total Bilirubin (0.2-1) mg/dl AST (15-37) U/L ALT (12-78) U/L Alkaline Phosphatase (45-117) U/L Troponin I (0-0.045) ng/ml Total Protein (6.4-8.2) gm/dl Albumin (3.4-5.0) gm/dl Globulin (2.5-4.0) gm/dl Albumin/Globulin Ratio (0.9-2) Lipase (73-393) U/L Imaging Data Radiologist's Impression: Radiology results as stated below per my review and the radiologist's interpretation: XR chest 1V portable FINDINGS: The bones soft tissues and hemidiaphragms are normal. The cardiomediastinal silhouette is normal. The lungs are clear. The pulmonary vasculature is normal. IMPRESSION: Negative chest. ACT 112: Negative or not required by law. The above report was generated using voice recognition software. It may contain grammatical, syntax or spelling errors. Electronically signed by: Kyrie Patel M.D. 10/17/2019 12:37 PM ECG Data Attestation: I personally reviewed and interpreted this ECG as follows: Indication: + chest pain Rate (beats per minute): 70 Rhythm: + normal sinus ECG Findings: no PACs and no PVCs Comparison ECG Date: from (07/21/2017) Change: no significant change Additional Comments: No acute ST segments. Blood Pressure Blood Pressure Findings: Elevated blood pressure Blood Pressure Disposition: further management by hospitalist [facility] Narrative The patient is a 69-year-old male who presented to the emergency department for an evaluation of chest pain. The patient describes anterior chest pain as a pressure. He does have multiple risk factors and had an elevated heart score. The patient was treated with aspirin and nitroglycerin prior to arrival and his symptoms were significantly improved. I discussed the patient's laboratory and radiographic studies with him. I also discussed the limitations of the emergency department work-up for chest pain with him. Ultimately I discussed his case with the on-call [facility] hospitalist group. They have agreed to evaluate the patient in the emergency department for further management disposition. Impression & Plan Substernal chest pain Discharge Plan Visit Data *Final* Discharge Date/Time: 10/17/19 14:26 Chief Complaint: Chest Pain ED Provider: Sea Dye Discharge Problem: Substernal chest pain Patient Disposition: Admitted As Inpatient Discharge Instructions Interventions: ED Discharge Assessment Last Done: 10/17/19 14:26 The scribe's documentation has been prepared under my direction and personally reviewed by me in its entirety. I confirm that the note above accurately reflects all work, treatment, procedures, and medical decision making performed by me.
[2019-10-17] MEDS ORDERED: PRAVASTATIN SOD 10 MG TAB PO SCH (21:00)
--- NOTE | 2019-10-17 22:01 | Electrocardiogram Report ---
Test Reason : Blood Pressure : / mmHG Vent. Rate : 068 BPM Atrial Rate : 068 BPM P-R Int : 146 ms QRS Dur : 090 ms QT Int : 412 ms P-R-T Axes : 066 045 028 degrees QTc Int : 438 ms Normal sinus rhythm Normal ECG When compared with ECG of 21-JUL-2017 10:27, No significant change was found Confirmed by Pedro Mace ([id number]) on 10/17/2019 10:00:28 PM Referred By: Confirmed By:Pedro Mace
[2019-10-18 03:51] LABS: Chol HDL Ratio 4; Cholesterol 190 mg/dl (0-200); HDL Cholesterol 45 mg/dl; LDL Cholesterol Calculated 108 mg/dl; Triglycerides 183 mg/dl (0-150); Troponin I < 0.015 ng/ml (0-0.045); VLDL Cholesterol 37 mg/dl
[2019-10-18 06:41] LABS: Estimated Average Glucose 114 mg/dl; Hemoglobin A1C 5.6 % (4.5-5.6)
[2019-10-18] MEDS ORDERED: PRAVASTATIN SOD 10 MG TAB PO SCH (09:00)
[2019-10-18] MEDS ORDERED: AMLODIPINE BESYLATE 5 MG TAB PO SCH (09:00)
[2019-10-18] MEDS ORDERED: ASPIRIN 81 MG ECTAB PO SCH (09:00)
--- NOTE | 2019-10-18 11:57 | XCELERA ---
[id number] \\[id number]\[id number]
--- NOTE | 2019-10-18 13:26 | Discharge Summary ---
Date of Service October 18, 2019 Admission HPI Per Admitting Provider Lavon Martin is a pleasant 69yo C male with history of HTN, HLP, family history of premature CAD (Father with AK at age 40, Brother with AK at age 38) presenting with chest pain. Patient reports the pain has been occurring intermittently for months to years but worsening over the last week. This AM he woke up around 07:00 and felt lightheaded, slightly nauseated and sweaty palms which worsened through the morning. Around 09:30 he developed substernal chest discomfort that he described as feeling like a "pulling or muscle strain". Discomfort non-radiating, non-pleuritic, non-exertional and non-positional. He was administered Nitro and ASA 324mg en route to [facility] ER which markedly improved his chest pain. At this time he has only mild discomfort, rated <1/10. He is active and independent. Denies exertional CP or dyspnea. Patient with no prior history of CAD, CHF or arrhythmia. He had a stress test performed years ago which he reported as normal. No prior catheterizations or cardiac interventions. He does have an 80% stenosis of left vertebral artery which is asymptomatic and being monitored by Dr. Mcmahan. ER Course: Metoprolol 5mg IV, Nitro 0.4mg and ASA 324mg Admission Exam Per Admitting Provider General: patient resting comfortably, NAD, non-toxic in appearance, AA&O x 4 Skin: warm, dry, intact, no rashes or lesions HEENT: NC/AT, PERRL, EOMI, anicteric sclera, conjunctiva without injection, external ear normal to inspection and nontender, nares patent, moist mucus membranes, dentition intact, small lesion on uvula, neck supple, trachea midline, no LAD, no thyromegaly, no JVD Heart: +S1/S2, regular, bradycardic, no m/r/g Lungs: equal air entry bilaterally, no rales/rhonchi/wheezes Abd: +BS, soft, NT/ND, no masses/organomegaly/ascites Ext: warm, 2+ pulses in UE/LE bilaterally, no clubbing/cyanosis or edema Neuro: nonfocal, patient AA&O x 4, speech intact, no facial droop, moving all extremities on command with equal strength 5/5 Principal Diagnosis Atypical chest pain - suspect musculoskeletal Discharge Exam Constitutional WD/WN, vitals as above Eyes + anicteric sclerae; normal pupil size ENMT external ear and nose normal, oropharynx normal Neck trachea midline, no thyromegaly Respiratory normal respiratory effort, lungs clear to auscultation Cardiovascular Rate/Rhythm: regular rate and regular rhythm Heart Sounds: normal S1 and normal S2; no murmur Vessels: no JVD Gastrointestinal (Abdomen) normal bowel sounds, soft, nontender, no hepatosplenomegaly Musculoskeletal no cyanosis or clubbing, extremities motor strength 5/5 Skin no rashes, warm and dry Neurologic moves all extremities and awake; no focal motor deficits and not confused Motor/Sensory: no tremor Psychiatric A+Ox3, euthymic affect Lymphatic no cervical or axillary lymphadenopathy Discharge Data Allergies Allergy/AdvReac Type Severity Reaction Status Date / Time benazepril Allergy Unknown Angioedema Verified 10/18/19 10:55 Iodinated Contrast Media Allergy Hives Unverified 10/17/19 12:42 atorvastatin AdvReac Unknown Diarrhea Verified 10/17/19 12:42 Consultations 10/17/19 13:02 ED Decision to Admit Stat Hospital Course (1) Substernal chest pain: Lavon Martin is a 69 year old male admitted to [facility] from October 18 to 2019 due to chest pain increasing in frequency and duration. Cardiac workup was performed due to unclear cause from history/examination and significant risk factors for coronary artery disease. Thankfully serial troponins were negative and subsequent stress echocardiogram was also negative for inducible ischemia. Based on his history this appears to be most consistent with musculoskeletal chest pain possibly related to muscle spasms in you back and between your ribs. Given history of heartburn he was also advised to trial tums when he gets the pain to see if they make any difference but the pain is less consistent with this diagnosis. Given ongoing heartburn and leg swelling he was advised to discuss possible alternative anti-hypertensive other than amlodipine with his PCP. There was no mediastinal widening on his CXR. For risk factor secondary prevention recommend a goal LDL < 70, currently (108). However since he just recently started pravastatin 10mg recommend continuing on this dose with follow up lipid panel in 2-3 months. I would consider high intensity statin since he has known carotid heart disease however noted previous intolerance to atorvastatin. Recommended also considering chiropractor to help with the pain and recommend at least 5-10 minutes of back stretches once a day. Kind regards, Dr Barney Layne (2) HTN (hypertension): (3) Hyperlipidemia: (4) GERD (gastroesophageal reflux disease): (5) Vertebral artery stenosis: Total Time Total Time Spent Total Time Spent (In Minutes): 50 Total Time Includes: Examination of the Patient, Discharge Planning and Medication Reconciliation Discharge Plan Discharge Items Patient Disposition: Home - Self-Care Reason For Visit: CHEST PAIN Discharge Diagnosis: Atypical chest pain - suspect musculoskeletal Activity: Resume your previous activity Non-emergency contact: Primary Care Provider Call non-emergency contact if: you have any medication questions and your symptoms worsen Follow-up/Referrals: Sea Simons MD [Primary Care Provider] - 10/23/19 9:10 am (If you need to reschedule this appointment, please call [phone] or [phone]. Your appointment will be with Dr. Mtz as Dr. Simons is out of the office.) Diet: Heart Healthy Addtl Attending Provider Instructions: You were admitted to [facility] from October 18 to 2019 due to chest pain increasing in frequency and duration. Cardiac workup was performed due to unclear cause from history/examination and significant risk factors for coronary artery disease. Thankfully serial troponins (heart enzymes) ruled out a heart attack and subsequent stress echocardiogram was negative for inducible ischemia - therefore the pain is unlikely to be heart related. Based on your history this appears to be most consistent with musculoskeletal chest pain possibly related to muscle spasms in you back and between your ribs. Given history of heartburn you may also wish to trial tums during a future episode to see it helps but the pain does not appear to be consistent with this, of note your blood pressure pill amlodipine can make heartburn worse. For risk factor modification recommend a goal LDL (low density lipoprotein) cholesterol level < 70, currently (108). However since you have recently started pravastatin 10mg recommend continuing on this dose with follow up lipid panel in 2-3 months. Please follow up with your primary care provider for ongoing management. You may also wish to try chiropractor to help with the pain and recommend at least 5-10 minutes of back stretches once a day. Kind regards, Dr Barney Layne Pending Studies at Discharge: No Stand-Alone Forms: My [facility], Smoking Cessation Medications and DC Order Prescriptions: Continued aspirin 81 mg Tablet,Delayed Release (Dr/Ec) 81 mg PO QAM RF: 0 amlodipine 10 mg tablet 10 mg PO QAM RF: 0 metoprolol succinate 25 mg tablet extended release 24 hr 25 mg PO QAM RF: 0 pravastatin 10 mg Tablet 10 mg PO DAILY RF: 0 Discharge Orders: Discharge Order (Routine); Ordered 10/18/19 Ordered By: Barney Layne Admission Data Admit Date/Time: 10/17/19 14:11 Attending Provider: Barney Layne Admit Provider: Ayah Maurice Primary Care Provider: Sea Simons Other Providers: Ayah Maurice Other Interventions: Discharge Summary Assessment (RN) Last Done: 10/18/19 13:35 DC Date/Time DO NOT enter until pt leaves facility: 10/18/19 13:58 Coding Level of Care Code 52624 OBS Care - Discharge Diagnoses Substernal chest pain R07.2 HTN (hypertension) I10 Hypertension type: essential hypertension Hyperlipidemia E78.5 Hyperlipidemia type: unspecified GERD (gastroesophageal reflux disease) K21.9 Esophagitis presence: esophagitis presence not specified Vertebral artery stenosis I65.02 Laterality: left
[2019-10-18] MEDS ORDERED: PERFLUTREN LIPID MICROSPHERE (DEFINITY) IV ONE (15:57)
--- NOTE | 2019-10-19 06:05 | Electrocardiogram Report ---
Test Reason : Blood Pressure : / mmHG Vent. Rate : 058 BPM Atrial Rate : 058 BPM P-R Int : 150 ms QRS Dur : 092 ms QT Int : 452 ms P-R-T Axes : 065 057 045 degrees QTc Int : 443 ms Sinus bradycardia Otherwise normal ECG When compared with ECG of 17-OCT-2019 11:31, No significant change was found Confirmed by Pedro Mace ([id number]) on 10/19/2019 6:05:21 AM Referred By: REFERRED SELF Confirmed By:Pedro Mace
== END 2019-10-18 13:58 | disposition home or self-care (01) ==
LOC: 2W 11:28 → ED 11:28 → SUATTDRO 14:11 → 2W 14:26

== ENCOUNTER 2019-11-01 05:20 | Inpatient (IN) ==
--- NOTE | 2019-10-25 09:31 | Anesthesiology Consultation ---
Date of Service October 25, 2019 Assessment & Plan (1) Encounter for pre-operative examination: Chart Review Chart Review: Acceptable Risk for Surgery (pending evaluation by anesthesia DOS to ensure chest pain has not reoccurred ) and Patient NOT seen in Pre Admission Testing Admitted to [facility] 10/17/19-10/18/19 for chest pain= negative stress ECHO for ischemia and serial troponins were negative. Pt typically active and independent. Denied exertional CP or dyspnea. [place] pain possibly related to muscle spasms in back and between ribs. Also advised Tums for possible heartburn. History Surgery Operation Date: 11/01/19 07:15 Proposed Procedures p Left Carotid Endarterectomy - Wesley Mcmahan MD Height/Weight Height: 6 ft Weight: 104.326 kg Allergies Allergy/AdvReac Type Severity Reaction Status Date / Time benazepril Allergy Unknown Angioedema Verified 10/25/19 08:17 Iodinated Contrast Media Allergy Hives Unverified 10/25/19 08:17 atorvastatin AdvReac Unknown Diarrhea Verified 10/25/19 08:17 Medications Home Medications Medication Instructions Recorded Confirmed Last Taken amlodipine 10 mg PO QAM 10/22/18 10/25/19 10/10/19 aspirin 81 mg PO QAM 10/22/18 10/25/19 10/10/19 metoprolol succinate 25 mg PO QAM 10/22/18 10/25/19 10/10/19 pravastatin 10 mg PO HS 10/17/19 10/25/19 Unknown Past Medical History Medical History Anxiety Carotid artery stenosis GERD (gastroesophageal reflux disease) History of recent hospitalization 10/17/19 [facility] - CP - REPORTS CARDIAC WORKUP NEGATIVE HTN (hypertension) (Chronic) Hyperlipidemia Vertebral artery stenosis Past Family History Family History Father Coronary heart disease, Onset Age: 40 Brother Coronary heart disease, Onset Age: 38 Past Surgical History Surgical History History of arthroscopy of right knee History of cataract surgery right History of colonoscopy History of esophagogastroduodenoscopy (EGD) REMOVAL FOREIGN BODY History of tooth extraction Nausea and vomiting after administration of anesthetic agent Status post scrotal varicocelectomy STOP BANG Total 7 Social History Smoking Status: Never smoker Do You Dip or Chew Tobacco: No Hx Alcohol Use: Yes Alcohol type: beer alcohol intake frequency: 3 or more drinks per day Hx Substance Use: No substance use type: does not use Testing Laboratory Results Laboratory Tests 10/17/19 10/17/19 10/17/19 11:05 11:05 11:05 WBC 5.84 Hgb 16.2 Hct 47.0 Plt Count 205 PT 10.3 INR 1.0 APTT 27.8 Sodium 138 Potassium 4.1 Chloride 105 Carbon Dioxide 28 BUN 9 Creatinine 1.21 Glucose 95 Hemoglobin A1c 10/18/19 03:03 WBC Hgb Hct Plt Count PT INR APTT Sodium Potassium Chloride Carbon Dioxide BUN Creatinine Glucose Hemoglobin A1c 5.6 Electrocardiogram Date: 10/18/19 Findings: + SB @ (58) Chest X-Ray Date: 10/17/19 Findings: + NAD Stress Test Date: 10/18/19 Type: exercise (Stress echo) Resting EF: 60 to 65% Resting LV Function: normal Resting RWMA: + none Negative stress echo for ischemia at 97% MPHR. Negative exercise EKG for ischemia. Moderate concentric LVH. Mild MR. 9.10 METS achieved. Other Testing Nect CTA 10/05/2019 = No change compared to the prior study (06/2017). Approximately 60% focal stenosis within the proximal left internal carotid artery.Mild to moderate stenosis at the origin of the bilateral vertebral arteries.
[2019-11-01] MEDS ORDERED: CEFAZOLIN 2,000 MG/15 ML SYR IV SCH (06:00)
[2019-11-01] MEDS ORDERED: LR 15ML/HR IV SCH ×2 (06:00)
--- NOTE | 2019-11-01 06:08 | History & Physical Report ---
Date of Service November 01, 2019 Assessment & Plan (1) Left carotid artery stenosis: Patient admitted for left carotid endarterectomy. I have discussed the risks options and benefits of the procedure with the patient. The patient understands the risks options and benefits and agrees to the procedure. History of Present Illness Chief Complaint: Left interncal carotid artery stenosis Primary Care Provider: Sea Simons MD Lavon Martin has been followed for carotid stenosis, which luckily has remained asymptomatic. He was recently seen with elevated velocities, and a CTA was performed to evaluate further characteristics of the lesion. On review of the CTA of the neck, it appears that the plaque at the carotid bifurcation is significantly flow altering with an approximate 80% stenosis at the origin of the left internal carotid artery. We have discussed surgical options with Mr. Martin and he is agreeable to go ahead with a left carotid endarterectomy. Allergies Allergy/AdvReac Type Severity Reaction Status Date / Time benazepril Allergy Intermediate Angioedema Verified 11/01/19 05:46 Iodinated Contrast Media Allergy Mild Hives Unverified 11/01/19 05:46 atorvastatin AdvReac Mild Diarrhea Verified 11/01/19 05:46 Home Medications Home Medications Medication Instructions Recorded Confirmed Type amlodipine 10 mg PO QAM 10/22/18 11/01/19 History aspirin 81 mg PO QAM 10/22/18 11/01/19 History metoprolol succinate 25 mg PO QAM 10/22/18 11/01/19 History pravastatin 10 mg PO HS 10/17/19 11/01/19 History Past Med/Surg History Medical History Anxiety Carotid artery stenosis GERD (gastroesophageal reflux disease) History of recent hospitalization 10/17/19 [facility] - CP - REPORTS CARDIAC WORKUP NEGATIVE HTN (hypertension) (Chronic) Hyperlipidemia Vertebral artery stenosis Surgical History History of arthroscopy of right knee History of cataract surgery right History of colonoscopy History of esophagogastroduodenoscopy (EGD) REMOVAL FOREIGN BODY History of tooth extraction Nausea and vomiting after administration of anesthetic agent Status post scrotal varicocelectomy Family History Father Coronary heart disease, Onset Age: 40 Brother Coronary heart disease, Onset Age: 38 Social History Preferred Language: Kosovan Communication Ability: Effective Sr Technical Sales Consultant Required: No Beliefs That Will Affect Care: None Current Living Situation: Spouse Other Information That Helps Us Care for You: No Feels Safe at Home: Yes Safety Concerns: Feels Safe At This Time Smoking Status: Never smoker Do You Dip or Chew Tobacco: No ; Second Hand Exposure: No ; Tobacco Cessation Education Requested by Patient: No Hx Alcohol Use: Yes Alcohol type: beer Hx Substance Use: No Review of Systems All systems reviewed & are unremarkable except as noted in HPI & below Physical Exam Constitutional: WD/WN, vitals as above Neck: normal visual inspection and trachea midline Respiratory: normal respiratory effort, lungs clear to auscultation Cardiovascular: Rate/Rhythm: regular rate and regular rhythm Heart Sounds: normal S1 and normal S2 Vessels: femoral pulses present and radial pulses present; no carotid bruit Extremities: normal capillary refill Results & Data Vital Signs (Past 12 Hours) Vital Signs Temp Pulse Resp BP Pulse Ox 11/01/19 05:51 36.6 C 71 20 169/91 H 97
[2019-11-01] MEDS ORDERED: PROPOFOL IV EMULSION 10 MG/ML 20 ML VIAL IV ONE (06:54)
[2019-11-01] MEDS ORDERED: DEXAMETHASONE SOD INJ 4 MG/ML VIAL ONE (06:54)
[2019-11-01] MEDS ORDERED: MIDAZOLAM HCL 1 MG/ML 2ML VIAL ONE (06:54)
[2019-11-01] MEDS ORDERED: ONDANSETRON INJ 2 MG/ML 2 ML VIAL ONE (06:54)
[2019-11-01] MEDS ORDERED: PHENYLEPHRINE HCL 10 MG/ML VIAL ONE (06:54)
[2019-11-01] MEDS ORDERED: NITROGLYCERIN/D5W 100 MCG/ML BTL ONE (06:54)
[2019-11-01] MEDS ORDERED: fentaNYL citrate 100 MCG/2 ML VIAL ONE ×2 (06:54→08:17)
[2019-11-01] MEDS ORDERED: LIDOCAINE HCL 2% 2 ML VIAL/AMP(20MG/ML) INFIL ONE (06:54)
[2019-11-01] MEDS ORDERED: NEOSTIGMINE METHYLSULFATE 5 MG/5 ML SYR ONE (06:57)
[2019-11-01] MEDS ORDERED: GLYCOPYRROLATE 0.2 MG/ML VIAL ONE (06:57)
[2019-11-01] MEDS ORDERED: ROCURONIUM BROMID 50MG/5ML SYR ONE ×3 (06:57→09:00)
[2019-11-01] MEDS ORDERED: CEFAZOLIN 250 MG/ML 1 GM VIAL ONE (07:02)
[2019-11-01] MEDS ORDERED: HEPARIN (PORCINE) 1000 UNIT/ML 10 ML (CATH LAB USE ONLY) ONE (07:02)
[2019-11-01] MEDS ORDERED: LIDOCAINE HCL 1% 20 ML VIAL ONE (07:02)
[2019-11-01] MEDS ORDERED: HEPARIN SOD (PORCINE) 1000 UNIT/ML 10 ML VIAL ONE (07:02)
[2019-11-01] MEDS ORDERED: GELATIN SPONGE SZ 100 ONE (07:03)
[2019-11-01] MEDS ORDERED: THROMBIN FOR SOLN 20000 UNIT KIT ONE (07:03)
[2019-11-01] MEDS ORDERED: BUPIVACAINE/EPINEPHRINE 0.5% MPF 1:200,000 10 ML VIAL ONE (07:03)
--- NOTE | 2019-11-01 07:23 | History & Physical Bridge Note ---
Date of Service November 01, 2019 History & Physical Bridge Note I have examined the patient, reviewed the History & Physical and in the interval since the performance of the History & Physical I have noted the following changes of clinical significance: no changes noted
[2019-11-01] MEDS ORDERED: ATROPINE SULFATE 0.1 MG/ML 10ML SYR IV PRN (08:26)
[2019-11-01] MEDS ORDERED: FLUMAZENIL 0.1 MG/1 ML 10 ML VIAL IV PRN (08:26)
[2019-11-01] MEDS ORDERED: PROMETHAZINE HCL 12.5 MG in SODIUM CHLORIDE 0.9% 50 ML IV PRN (08:26)
[2019-11-01] MEDS ORDERED: LABETALOL HCL IV 5 MG/ML 20ML IV PRN (08:26)
[2019-11-01] MEDS ORDERED: NALOXONE HCL 0.4 MG/1 ML VIAL/CARP IV PRN (08:26)
[2019-11-01] MEDS ORDERED: ePHEDrine sulfate 50 MG/ML AMP IV PRN (08:26)
[2019-11-01] MEDS ORDERED: ONDANSETRON INJ 2 MG/ML 2 ML VIAL IV PRN ×2 (08:26→12:41)
[2019-11-01] MEDS ORDERED: fentaNYL citrate 100 MCG/2 ML VIAL IV PRN (08:26)
[2019-11-01] MEDS ORDERED: PHENYLEPHRINE HCL 20 MG in DEXTROSE 5% 500 ML IV PRN (09:32)
--- NOTE | 2019-11-01 09:36 | Post Operative Brief Note ---
Immediate Post Op Note v1 Date of Surgery November 01, 2019 Pre & Post Diagnosis Operation Date: 11/01/19 07:30 Pre-Op Diagnosis: Left Internal Carotid Artery Stenosis Post-Op Diagnosis: Left Internal Carotid Artery Stenosis I identified the patient and participated in the time-out.: Yes Procedure Operation Date: 11/01/19 07:30 Actual Procedures p Left Carotid Endarterectomy with bovine patch(Left) - Wesley Mcmahan MD Surgeon Wesley Mcmahan MD Color Paste Mixer MD Windy L.Minarchick,PAC Estimated Blood Loss 80 Findings Consistent with Post-Op Diagnosis Anesthesia Type General Complications none Disposition Accompanied Patient To Recovery: No Disposition: Recovery Room
--- NOTE | 2019-11-01 09:50 | Operative Report ---
Post Operative Report Pre & Post Diagnosis Operation Date: 11/01/19 07:30 Pre-Op Diagnosis: Left Internal Carotid Artery Stenosis Post-Op Diagnosis: Left Internal Carotid Artery Stenosis I identified the patient and participated in the time-out.: Yes Procedure Operation Date: 11/01/19 07:30 Actual Procedures p Left Carotid Endarterectomy(Left) - Wesley Mcmahan MD Surgeon Dr. Marj Dsouza MD Site Supervisor MD Vianney TempleMinarchick,PAC Estimated Blood Loss 80 Findings Consistent with Post-Op Diagnosis Patient had a severe stenosis with softer ruptured plaque in the left internal carotid artery. Fluids 1100 cc of crystalloid Specimens Left carotid artery plaque Anesthesia Type General Complications none Disposition Accompanied Patient To Recovery: Yes Disposition: Recovery Room Indications Asymptomatic severe left carotid artery stenosis Description of Procedure The patient was brought to the operating room, where an arterial line was placed and general anesthesia was secured. The left neck was prepped and sterilely draped. The patient was identified and a timeout performed. An oblique incision was made along the anterior border of the right sternocleidomastoid muscle. The external jugular vein was doubly ligated and divided after being dissected free. The platysma was divided and dissection was carried down to the carotid sheath. The facial vein was doubly ligated and divided exposing the carotid bifurcation. The vagus nerve and XII nerve were identified and kept free from dissection and retraction. The internal, external, and common carotid arteries were dissected free proximally and distally. 8000 U of Heparin was given intravenously. The external carotid as well as superior thyroid vessels were encircled with a vessel loop. Once the heparin was allowed to circulate for approximately 5 minutes, clamps were placed starting with the internal carotid and common carotid and external carotid. An anterior arteriotomy was made on the common carotid artery using an 11 blade. Hicks scissors was used to extend the arteriotomy through the plaque on to the distal soft internal carotid artery. The plaque was ulcerated and nearly occlusive. A shunt was then inserted into the into the internal carotid artery and revealed good backbleeding. The prox imal end of the shunt was then inserted into the common carotid artery and secured in place. The Doppler attached to the shunt was turned on and revealed good flow through the shunt. A [place] elevator was used to create an endarterectomy plane. The proximal endpoint was created using Hicks scissors as well as a distal endpoint was created with the Hicks scissors. The plaque was freed out of the external carotid artery.With downward retraction on the plaque, a smooth distal endpoint was created. All debris was meticulously debrided from the inside of the lumen and confirmed with instillation of heparinized saline. Two 7-0 Prolene tacking sutures were placed the proximal end of the internal carotid artery to contact down the intima. Once endarterectomy was completed, a bovine pericardial patch was then cut to the appropriate size and sewn into internal carotid artery using a 6-0 Prolene suture starting at the internal carotid artery corner of the arteriotomy. Before the patch was completed, the shunt was pulled and all the arteries were backbleed extruding any air and debris. The patch was then completed. The external carotid clamp was removed first, followed by the common carotid artery clamp, and finally the internal carotid artery clamp, restoring blood flow to the brain. Patient did have some oozing and one 6-0 Prolene sutures were used to achieve hemostasis as well as th rombin soaked gel foam and spray. Meticulous hemostasis was secured. The wound was then closed in multiple layers using 2-0 Vicryl suture, 3-0 Vicryl suture then a 4-0 Vicryl subcutaneous layer closing the skin. Dermabond was applied over the incision. The patient tolerated the procedure well and was extubated on table. The patient was moving all four extremities to command prior to and upon transfer to the recovery room. Dr. Mcmahan was present and scrubbed for the entire procedure. I attest to the content of the Intraoperative Record and any orders documented t herein. Any exceptions are noted below.
--- NOTE | 2019-11-01 11:04 | Anesthesiology Progress Note ---
Date of Service November 01, 2019 Anesthesia Post Procedure Vital Signs Vital Signs: Temp Pulse Pulse Resp BP Pulse Ox 11/01/19 10:55 69 16 138/86 95 11/01/19 10:45 69 16 140/88 95 11/01/19 10:35 71 16 130/80 97 11/01/19 10:25 72 20 133/91 97 11/01/19 10:19 36.2 C L 81 20 130/89 97 11/01/19 05:51 36.6 C 71 20 169/91 H 97 Transfer of Care Handoff Completed per policy Notes Mental Status: alert / awake / arousable Patient Amnestic to Procedure: Yes Nausea / Vomiting: adequately controlled Pain: adequately controlled Airway Patency, RR, SpO2: stable & adequate BP & HR: stable & adequate Hydration State: stable & adequate Anesthetic Complications: no major complications apparent
[2019-11-01] MEDS ORDERED: LACTATED RINGER'S 1,000 ML IV SCH (12:00)
[2019-11-01] MEDS ORDERED: MoRPHine SULFATE 4 MG/ML 1 ML CARP\\VIAL IV PRN (12:02)
[2019-11-01] MEDS ORDERED: OXYCODONE/ACETAMINOPHEN 5mg/325mg TAB PO PRN (12:02)
[2019-11-01] MEDS: CEFAZOLIN 2000MG 2,000 MG/15 ML SYR IV SCH ×2 (16:34→23:48)
[2019-11-01] MEDS ORDERED: PRAVASTATIN SOD 10 MG TAB PO SCH (21:00)
[2019-11-02 05:27] LABS: Basophils # (auto) 0.01 K/uL (0-0.2); Basophils % (auto) 0.1 %; Eosinophils # (auto) 0.01 K/uL (0-0.5); Eosinophils % (auto) 0.1 %; Hematocrit (blood only) 39.9 % (42-52); Hemoglobin 13.4 g/dL (14.0-18.0); Immature Granulocytes # (auto) 0.03 K/uL (0.00-0.02); Immature Granulocytes % (auto) 0.2 %; Lymphocytes # (auto) 1.05 K/uL (1.2-3.4); Lymphocytes % (auto) 8.2 %; Mean Corpuscular Hemoglobin 30.2 pg (25-34); Mean Corpuscular Hgb Conc 33.6 g/dL (32-36); Mean Corpuscular Volume 89.9 fL (80-100); Mean Platelet Volume 10.6 fL (7.4-10.4); Monocytes # (auto) 0.92 K/uL (0.11-0.59); Monocytes % (auto) 7.2 %; Neutrophils % (auto) 84.2 %; Platelet Count 231 K/uL (130-400); RDW Coefficient of Variation 13.4 % (11.5-14.5); RDW Standard Deviation 44.4 fL (36.4-46.3); Red Blood Count 4.44 M/uL (4.7-6.1); White Blood Count 12.82 K/uL (4.8-10.8)
--- NOTE | 2019-11-02 08:14 | Surgery Progress Note ---
Date of Service November 02, 2019 Assessment & Plan (1) Left carotid artery stenosis: Patient POD#1 of a left carotid endarterectomy. He has had no problems since surgery. Will D/C today. Subjective Patient has no complaints. Has not taken anything for pain. Denies any difficulty swallowing. Denies any focal weakness. Physical Exam Constitutional: WD/WN, vitals as above Neck: trachea midline Minimal incisional swelling Respiratory: normal respiratory effort, lungs clear to auscultation Cardiovascular: Rate/Rhythm: regular rate and regular rhythm Vessels: radial pulses present Extremities: normal capillary refill Neurologic: CN's II-XI intact bilaterally, moves all extremities and awake; no focal motor deficits Motor/Sensory: normal movement and no sensory deficit Psychiatric: Orientation: alert and oriented x 3 Results & Data Vital Signs (Past 12 Hours) Vital Signs Temp Pulse Pulse Resp BP BP Pulse Ox 11/02/19 06:00 63 14 158/80 H 95 11/02/19 05:00 63 14 133/72 93 11/02/19 04:30 63 12 93 11/02/19 04:00 67 12 140/77 94 11/02/19 03:30 67 15 93 11/02/19 03:00 66 13 92 11/02/19 02:00 70 14 139/81 92 11/02/19 01:00 68 14 144/83 H 94 11/02/19 00:00 36.6 C 83 18 140/86 93 11/01/19 23:00 71 14 140/86 93 11/01/19 22:43 84 17 143/92 H 93 11/01/19 22:30 80 12 97 11/01/19 22:00 74 12 91 11/01/19 21:43 73 14 137/88 92 11/01/19 21:30 69 14 94 11/01/19 20:30 91 H 20 95
[2019-11-02] MEDS ORDERED: METOPROLOL SUCC 25MG EXT REL TAB PO SCH (09:00)
[2019-11-02] MEDS ORDERED: AMLODIPINE BESYLATE 5 MG TAB PO SCH (09:00)
[2019-11-02] MEDS ORDERED: ASPIRIN 81 MG ECTAB PO SCH (09:00)
--- NOTE | 2019-11-02 10:37 | Anesthesiology Progress Note ---
Date of Service November 02, 2019 Anesthesia Post Procedure Vital Signs Vital Signs: Temp Pulse Pulse Resp BP BP BP 11/02/19 09:09 36.9 C 63 23 128/77 158/80 H 11/02/19 08:24 83 23 143/93 H 11/02/19 08:00 36.9 C 79 19 11/02/19 07:00 74 14 11/02/19 06:00 63 14 158/80 H 11/02/19 05:00 63 14 133/72 11/02/19 04:30 63 12 11/02/19 04:00 67 12 140/77 11/02/19 03:30 67 15 11/02/19 03:00 66 13 11/02/19 02:00 70 14 139/81 11/02/19 01:00 68 14 144/83 H 11/02/19 00:00 36.6 C 83 18 140/86 11/01/19 23:00 71 14 140/86 11/01/19 22:43 84 17 143/92 H 11/01/19 22:30 80 12 11/01/19 22:00 74 12 11/01/19 21:43 73 14 137/88 11/01/19 21:30 69 14 11/01/19 20:30 91 H 20 11/01/19 20:00 37 C 87 20 163/99 H 11/01/19 17:00 77 18 11/01/19 16:43 79 15 163/96 H 11/01/19 16:30 77 16 11/01/19 16:00 36.6 C 71 19 11/01/19 15:43 64 12 112/74 11/01/19 15:30 62 12 11/01/19 15:00 64 13 11/01/19 14:43 71 18 122/72 11/01/19 14:30 66 15 11/01/19 14:00 70 17 11/01/19 13:43 68 13 119/85 11/01/19 13:30 73 17 11/01/19 13:27 71 20 140/93 11/01/19 13:20 67 14 11/01/19 13:12 67 15 131/81 11/01/19 13:10 70 17 11/01/19 13:00 68 14 11/01/19 12:57 67 15 118/76 11/01/19 12:50 73 18 03/04/20 12:42 70 15 118/82 11/01/19 12:40 75 18 11/01/19 12:30 67 13 11/01/19 12:27 63 15 127/82 11/01/19 12:20 64 15 11/01/19 12:12 61 14 119/77 11/01/19 12:10 65 15 11/01/19 12:02 128/77 11/01/19 12:00 66 15 11/01/19 11:58 63 14 11/01/19 11:57 61 13 126/75 11/01/19 11:51 36.4 C L 68 20 128/77 135/81 11/01/19 11:42 64 14 139/81 11/01/19 11:15 36.3 C L 65 12 125/84 11/01/19 11:00 63 12 129/83 11/01/19 10:55 69 16 138/86 11/01/19 10:45 69 16 140/88 Pulse Ox 11/02/19 09:09 96 11/02/19 08:24 96 11/02/19 08:00 94 11/02/19 07:00 94 11/02/19 06:00 95 11/02/19 05:00 93 11/02/19 04:30 93 11/02/19 04:00 94 11/02/19 03:30 93 11/02/19 03:00 92 11/02/19 02:00 92 11/02/19 01:00 94 11/02/19 00:00 93 11/01/19 23:00 93 11/01/19 22:43 93 11/01/19 22:30 97 11/01/19 22:00 91 11/01/19 21:43 92 11/01/19 21:30 94 11/01/19 20:30 95 11/01/19 20:00 97 11/01/19 17:00 93 11/01/19 16:43 92 11/01/19 16:30 95 11/01/19 16:00 94 11/01/19 15:43 93 11/01/19 15:30 96 11/01/19 15:00 92 11/01/19 14:43 97 11/01/19 14:30 97 11/01/19 14:00 95 11/01/19 13:43 95 11/01/19 13:30 95 11/01/19 13:27 93 11/01/19 13:20 97 11/01/19 13:12 97 11/01/19 13:10 97 11/01/19 13:00 95 11/01/19 12:57 95 11/01/19 12:50 94 11/01/19 12:42 95 11/01/19 12:40 92 11/01/19 12:30 94 11/01/19 12:27 94 11/01/19 12:20 95 11/01/19 12:12 95 11/01/19 12:10 95 11/01/19 12:02 11/01/19 12:00 96 11/01/19 11:58 96 11/01/19 11:57 94 11/01/19 11:51 94 11/01/19 11:42 94 11/01/19 11:15 95 11/01/19 11:00 95 11/01/19 10:55 95 11/01/19 10:45 95 Notes Mental Status: alert / awake / arousable Patient Amnestic to Procedure: Yes Nausea / Vomiting: adequately controlled Pain: adequately controlled Airway Patency, RR, SpO2: stable & adequate BP & HR: stable & adequate Hydration State: stable & adequate Anesthetic Complications: no major complications apparent and Pt Satisfied with anesthetic care
--- NOTE | 2019-11-02 10:56 | Critical Care Consultation ---
Date of Consultation November 02, 2019 Assessment & Plan (1) Left carotid artery stenosis: -- Left carotid Endartherectomy done by Dr Mcmahan 11/01/19 Patient doing well. Hemodynamically stable. LIDIA overnight. Tolerating diet. No N or V. -- HTN c/w BP medicaitons -- DLP c/w statin at home Plan: Hemodynamically stable to be DG/Discharged. Plan as per Dr Mcmahan (2) HTN (hypertension): History of Present Illness Attending Physician: Wesley Mcmahan MD History of Present Illness 69 yo with pmhx of COPD, ex smoker, HTN, DLP was admitted to the hospital for Left sided carotid endartherectomy 11/01/19. At the time of examination patient denies any blury vision, no Chest pain, speech is clear, no sob, no weakness, No N or V. No MCGHEE. Tolerating diet. without any dysphagia or odynophagis. No dysuria, no diarrhea. Social hx: Ex pipe smoker, 4 beers on daily basis, denies any illicit drug use. EK10/18/19: Sinus bradycardia. Normal axis. No ST-T wave changes. Allergies Allergy/AdvReac Type Severity Reaction Status Date / Time benazepril Allergy Intermediate Angioedema Verified 11/01/19 05:46 Iodinated Contrast Media Allergy Mild Hives Unverified 11/01/19 05:46 atorvastatin AdvReac Mild Diarrhea Verified 11/01/19 05:46 adhesive AdvReac Rash Verified 11/01/19 07:00 Home Medications Home Medications Medication Instructions Recorded Confirmed Type amlodipine 10 mg PO QAM 10/22/18 11/01/19 History aspirin 81 mg PO QAM 10/22/18 11/01/19 History metoprolol succinate 25 mg PO QAM 10/22/18 11/01/19 History pravastatin 10 mg PO HS 10/17/19 11/01/19 History oxycodone-acetaminophen [Percocet] 1 tab PO Q6H PRN #10 tab 11/02/19 Rx Patient History Medical History Anxiety Carotid artery stenosis GERD (gastroesophageal reflux disease) History of recent hospitalization 10/17/19 [facility] - CP - REPORTS CARDIAC WORKUP NEGATIVE HTN (hypertension) (Chronic) Hyperlipidemia Vertebral artery stenosis Surgical History History of arthroscopy of right knee History of cataract surgery right History of colonoscopy History of esophagogastroduodenoscopy (EGD) REMOVAL FOREIGN BODY History of tooth extraction Nausea and vomiting after administration of anesthetic agent Status post scrotal varicocelectomy Family History Father Coronary heart disease, Onset Age: 40 Brother Coronary heart disease, Onset Age: 38 Social History Preferred Language: Sierra Leonean Communication Ability: Effective Tube Trailer Filler Required: No Beliefs That Will Affect Care: None Current Living Situation: Spouse Other Information That Helps Us Care for You: No Feels Safe at Home: Yes Safety Concerns: Feels Safe At This Time Smoking Status: Never smoker Do You Dip or Chew Tobacco: No ; Second Hand Exposure: No ; Tobacco Cessation Education Requested by Patient: No Hx Alcohol Use: Yes Alcohol type: beer Hx Substance Use: No Review of Systems Review of Systems: All systems reviewed & are unremarkable except as noted in HPI & below Physical Exam Constitutional: WD/WN, vitals as above Eyes: PERRL, conjunctivae normal, anicteric sclerae ENMT: external ear and nose normal, oropharynx normal Neck: trachea midline, no thyromegaly Left sided incision appreciated. No rubor, no calor. Respiratory: normal respiratory effort, lungs clear to auscultation Cardiovascular: RRR, no murmur, no edema Gastrointestinal (Abdomen): normal bowel sounds, soft, nontender, no hepatosplenomegaly Musculoskeletal: no cyanosis or clubbing, extremities motor strength 5/5 Skin: no rashes, warm and dry Neurologic: patellar DTR's 2+ bilat, sensation intact and PERRL, EOMI, accommodation nl, no face palsy, no dysarthria CN's II-XI intact bilaterally Psychiatric: A+Ox3, euthymic affect Lymphatic: no cervical or axillary lymphadenopathy Results & Data ([facility]) Vital Signs (Past 12 Hours) Vital Signs Temp Pulse Pulse Resp BP BP Pulse Ox 11/02/19 06:00 63 14 158/80 H 95 11/02/19 05:00 63 14 133/72 93 11/02/19 04:30 63 12 93 11/02/19 04:00 67 12 140/77 94 11/02/19 03:30 67 15 93 11/02/19 03:00 66 13 92 11/02/19 02:00 70 14 139/81 92 11/02/19 01:00 68 14 144/83 H 94 11/02/19 00:00 36.6 C 83 18 140/86 93 11/01/19 23:00 71 14 140/86 93 11/01/19 22:43 84 17 143/92 H 93 11/01/19 22:30 80 12 97 11/01/19 22:00 74 12 91 11/01/19 21:43 73 14 137/88 92 11/01/19 21:30 69 14 94 11/01/19 20:30 91 H 20 95 11/01/19 20:00 37 C 87 20 163/99 H 97 11/02/19 04:58 Coding Level of Care Code New Pt Critical Care 1st 30-74 mins Patient Type New Diagnoses Left carotid artery stenosis I65.22 HTN (hypertension) I10 Hypertension type: essential hypertension Time Spent (min) 36 (1) HTN (hypertension) Hypertension type: essential hypertension Qualified Code(s): I10 - Essential (primary) hypertension
--- NOTE | 2019-11-03 13:58 | Discharge Summary ---
Date of Service November 03, 2019 Admission HPI Per Admitting Provider Lavon Martin has been followed for carotid stenosis, which luckily has remained asymptomatic. He was recently seen with elevated velocities, and a CTA was performed to evaluate further characteristics of the lesion. On review of the CTA of the neck, it appears that the plaque at the carotid bifurcation is significantly flow altering with an approximate 80% stenosis at the origin of the left internal carotid artery. We have discussed surgical options with Mr. Martin and he is agreeable to go ahead with a left carotid endarterectomy. Admission Exam Per Admitting Provider Constitutional: WD/WN, vitals as above Neck: normal visual inspection and trachea midline Respiratory: normal respiratory effort, lungs clear to auscultation Cardiovascular: Rate/Rhythm: regular rate and regular rhythm Heart Sounds: normal S1 and normal S2 Vessels: femoral pulses present and radial pulses present; no carotid bruit Extremities: normal capillary refill Principal Diagnosis 1. s/p L carotid Endarterectomy 2. L ICA stenosis Discharge Exam Constitutional WD/WN, vitals as above Neck normal visual inspection and trachea midline Respiratory normal respiratory effort, lungs clear to auscultation Cardiovascular Rate/Rhythm: regular rate and regular rhythm Heart Sounds: normal S1 and normal S2 Vessels: radial pulses present Extremities: normal capillary refill Neurologic CN's II-XI intact bilaterally, moves all extremities and awake; no focal motor deficits Motor/Sensory: normal movement and no sensory deficit Psychiatric Orientation: alert and oriented x 3 Discharge Data Allergies Allergy/AdvReac Type Severity Reaction Status Date / Time benazepril Allergy Intermediate Angioedema Verified 11/02/19 20:35 Iodinated Contrast Media Allergy Mild Hives Verified 11/02/19 20:35 atorvastatin AdvReac Mild Diarrhea Verified 11/02/19 20:35 adhesive AdvReac Rash Verified 11/02/19 20:35 Consultations 11/02/19 07:53 Consult Fur Dry Cleaner Hand Routine Procedures Performed Operation Date: 11/01/19 07:30 Actual Procedures p Left Carotid Endarterectomy(Left) - Wesley Mcmahan MD Hospital Course (1) Left carotid artery stenosis: Patient POD#1 of a left carotid endarterectomy. He has had no problems since surgery. Will D/C today. Total Time Total Time Spent Total Time Spent (In Minutes): 0 Discharge Plan Discharge Items Patient Disposition: Home - Self-Care Reason For Visit: Left Internal Caoritd Artery Stenosis Discharge Diagnosis: Left carotid stenosis, left carotid endarterectomy Activity: Per Instructions section Lifting: Gradually increase as tolerated Bathing Comment: may shower Driving/Machine Use: Resume 3 days after discharge Non-emergency contact: Surgeon Call non-emergency contact if: you have any medication questions, your symptoms worsen, your pain is not controlled, your pain is worsening, your pain is unusual for you, your pain is concerning for you, your temperature is above 101.5, your wound has increased redness, your wound has increased drainage and your wound pain has increased Follow-up/Referrals: Sea Simons MD [Primary Care Provider] - 11/07/19 11:10 am Diet: Heart Healthy Addtl Attending Provider Instructions: SPECIAL CARE INSTRUCTIONS: Medications: * Continue to take Aspirin as directed. Incision Care: * You may shower, but do not rub incision. You may let the warm soapy water run over it. Be sure to dry the incision well after bathing. * Do not shave directly over the incision until it is healed. * DO NOT IMMERSE THE INCISION IN A TUB/POOL/etc. UNTIL HEALED. Restrictions: * Do not drive for at least one week or if you are still taking any narcotic pain medication. * Do not lift anything heavier than a gallon of milk for one week after going home. Possible Complications: * Numbness - It is normal to have some numbness around the incision. Numbness can extend beyond the incision to areas of the neck, ear and face. The numbness is due to bruising of nerves during the surgery and will gradually improve over a period of months. * Hoarseness/Difficulty Speaking and Swallowing - The bruising of nerves in the neck can also cause a hoarse voice, difficulty speaking or swallowing. This may improve over time, HOWEVER, if it continues for more than a few days please contact our office ([phone]). * Excessive Swelling - There will be some swelling immediately after surgery which usually resolves within one week. If you notice that the swelling is getting worse, notify your surgeon ([phone]). * Drainage/Bleeding - If there is any drainage or bleeding, it should be a very small amount (less than a teaspoon per day). If you have excessive bleeding or drainage from the incision, call your surgeon ([phone]) right away. ACTIVATION OF EMERGENCY MEDICAL SYSTEM: Call 911, immediately, if you experience any of the following: Warning Signs and Symptoms of Stroke: * Sudden numbness or weakness of the face, arm or leg, especially on one side of the body * Sudden confusion, trouble speaking or understanding * Sudden trouble seeing in one or both eyes * Sudden trouble walking, dizziness, loss of balance or coordination * Sudden severe headache with no cause Do not delay calling 911 if you experience any warning signs or symptoms of a stroke. Delay in seeking medical attention may affect what treatments can be given to you. Risk Factors for Stroke: You can reduce your chances of stroke by working with your medical provider to adopt a healthy lifestyle. Some specific ways to lower your chance of stroke are: * If you are a smoker, now is the time to stop smoking cigarettes * If you are diabetic, improve the control of your blood sugars * Avoid excessive amounts of alcohol * Control high blood pressure * Lose weight if you are overweight * Be sure to lead an active lifestyle * Eat a healthy diet low in salt, cholesterol and fat You should know about other risk factors for stroke that you are unable to control. These include: * Age 55 years or older * Male gender * Certain racial groups: , or / * Family History of Stroke, Mini stroke or Heart Attack * Sickle Cell Disease You will be receiving a call from the Vascular Surgery Nurse after you are discharged. FOLLOW UP VISIT: It is important for you to keep your follow up appointments with your medical provider. Keep any scheduled doctor appointments. Call [phone] to schedule a follow up appointment if one not already scheduled. Pending Studies at Discharge: No Stand-Alone Forms: My [facility], Smoking Cessation Medications and DC Order Prescriptions: Continued aspirin 81 mg Tablet,Delayed Release (Dr/Ec) 81 mg PO QAM RF: 0 amlodipine 10 mg tablet 10 mg PO QAM RF: 0 metoprolol succinate 25 mg tablet extended release 24 hr 25 mg PO QAM RF: 0 pravastatin 10 mg Tablet 10 mg PO HS RF: 0 Discharge Orders: Discharge Order (Routine); Ordered 11/02/19 Ordered By: Wesley Mcmahan Admission Data Admit Date/Time: 11/01/19 07:26 Attending Provider: Wesley Mcmahan Admit Provider: Wesley Mcmahan Primary Care Provider: Sea Simons Other Providers: Daniel Georges ; Johnson Wood ; Demond Hall ; Jamel Parkinson ; Yasir Delgado ; Luis Awan ; Genaro Funez Other Interventions: Discharge Summary Assessment (RN) Last Done: 11/02/19 09:09 DC Date/Time DO NOT enter until pt leaves facility: 11/02/19 10:00
== END 2019-11-02 10:00 | disposition home or self-care (01) | DRG 39 ==
LOC: ASU 05:20 → 1E 07:26